=== PATIENT | female | born 1995 | race Two or more races ===

== ENCOUNTER 2017-06-09 11:46 | Emergency (ER) | payer SELFPAY ==
[~2017-06-09] VITALS: Ht 160 cm; Wt 70.9 kg
[~2017-06-09 11:46] MED LIST: MYCOL30CR TP; NO HOME MEDS
[2017-06-09 11:54] VITALS: BP 124/83
[2017-06-09] MEDS ORDERED: ibuprofen tablet 400 MG TABLET PO ONE (12:40)
[2017-06-26] MEDS ORDERED: CEPH250T PO (11:14)
== END 2017-06-09 12:53 | disposition left against medical advice (07) ==
LOC: ER 11:47
DX: M54.89 Other dorsalgia (principal); F32.9 Major depressive disorder, single episode, unspecified; F41.9 Anxiety disorder, unspecified; F20.9 Schizophrenia, unspecified; F12.10 Cannabis abuse, uncomplicated; Z88.6 Allergy status to analgesic agent; Z88.8 Allergy status to other drugs, medicaments and biological substances
CPT/HCPCS: 99282; 99283

== ENCOUNTER 2018-04-27 13:20 | Emergency (ER) | payer MEDICAID, OTHER ==
[~2018-04-27] VITALS: Ht 1604.7 cm; Wt 70.0 kg
[2018-04-27 13:56] LABS: BASOPHILS % (AUTO) 0.4 % (0-1); EOSINOPHILS # (AUTO) 0.1 X10'3 (0-0.9); EOSINOPHILS % (AUTO) 1.7 % (0-6); HEMATOCRIT 37.4 % (35.0-45.0); HEMOGLOBIN 12.9 g/dl (12.0-16.0); LYMPHOCYTES # (AUTO) 1.5 X10'3 (1.1-4.8); LYMPHOCYTES % (AUTO) 21.3 % (21-51); MEAN CORPUSCULAR HEMOGLOBIN 32.1 PG (27.0-31.0); MEAN CORPUSCULAR HGB CONC 34.6 % (33.0-36.5); MEAN CORPUSCULAR VOLUME 92.8 FL (78-98); MEAN PLATELET VOLUME 8.1 FL (7.4-10.4); MONOCYTES # (AUTO) 0.6 X10'3 (0-0.9); MONOCYTES % (AUTO) 8.8 % (2-12); NEUTROPHILS # (AUTO) 4.7 X10'3 (1.8-7.7); NEUTROPHILS % (AUTO) 67.8 % (42-75); PLATELET COUNT 281 X10'3 (140-440); RED BLOOD COUNT 4.04 X10'6 (4.20-5.60); RED CELL DISTRIBUTION WIDTH 12.7 % (11.5-14.5); WHITE BLOOD COUNT 6.9 X10'3 (4.5-11.0)
[2018-04-27 14:00] LABS: CLARITY,URINE SLIGHTLY CLOUDY (Clear); GLUCOSE, URINE NEGATIVE (Neg); KETONES,URINE TRACE mg/dl (Neg); LEUKOCYTE ESTERASE ,URINE TRACE (Neg); NITRITES, URINE NEGATIVE (Neg); OCCULT BLOOD,URINE NEGATIVE (Neg); PH,URINE 6.5 (4.8-8.0); PROTEIN,URINE TRACE mg/dl (Neg)
[2018-04-27 14:01] LABS: COLOR,URINE DARK YELLOW (Yellow); UA COLLECTION TYPE CLN CATCH MIDSTREAM; URINE HCG NEGATIVE (NEG)
[2018-04-27 14:07] LABS: MUCUS STRANDS MANY /LPF (Neg); RBC,URINE NONE SEEN /HPF (0-2); SQUAMOUS EPITHELIAL CELL,UR FEW /LPF (FEW)
[2018-04-27 14:08] LABS: BACTERIA,URINE 1+ /HPF (Neg)
[2018-04-27 14:10] LABS: ALANINE AMINOTRANSFERASE 37 U/L (12-78); ALBUMIN 3.9 G/DL (3.4-5.0); ALBUMIN/GLOBULIN RATIO 1.2 (1.1-1.5); ALKALINE PHOSPHATASE 77 IU/L (46-116); ANION GAP 11 (8-16); ASPARTATE AMINO TRANSFERASE 29 U/L (10-37); BILIRUBIN,TOTAL 0.6 MG/DL (0.1-1.0); BLOOD UREA NITROGEN 9 MG/DL (7-18); BUN/CREATININE RATIO 9.5 (6.6-38.0); CHLORIDE 104 MMOL/L (99-107); CREATININE 0.95 MG/DL (0.40-0.90); GLUCOSE 80 MG/DL (70-104); POTASSIUM 3.5 MMOL/L (3.5-5.1); SODIUM 138 MMOL/L (135-145); TOTAL CARBON DIOXIDE 23.3 MMOL/L (24-32); TOTAL PROTEIN 7.2 G/DL (6.4-8.2); eGFR 74 ML/MIN
[2018-04-27 14:19] LABS: ETHANOL < 0.010 GM/DL (0.0-0.010)
[2018-04-27 14:28] LABS: URINE AMPHETAMINE SCREEN NEGATIVE (Neg); URINE BARBITUATE SCREEN NEGATIVE (Neg); URINE BENZODIAZEPINES SCREEN NEGATIVE (Neg); URINE CANNABINOID SCREEN POSITIVE (Neg); URINE COCAINE SCREEN NEGATIVE (Neg); URINE METHADONE SCREEN NEGATIVE (Neg); URINE OPIATE SCREEN NEGATIVE (Neg); URINE PHENCYCLIDINE SCREEN NEGATIVE (Neg)
[2018-04-27 16:00] VITALS: BP 135/75
[2018-04-27] MEDS: sulfamethoxazole/trimethoprim DS (800/160mg) tablet PO SCH ×2 (17:00→20:49)
[2018-04-27] MEDS ORDERED: haloperidol lactate 5mg/ml inj IM ONE (17:40)
== END 2018-04-27 23:06 ==
LOC: ER 13:20
DX: F20.9 Schizophrenia, unspecified (principal); F19.10 Other psychoactive substance abuse, uncomplicated; N39.0 Urinary tract infection, site not specified; R45.1 Restlessness and agitation; F31.9 Bipolar disorder, unspecified; F12.90 Cannabis use, unspecified, uncomplicated; F15.90 Other stimulant use, unspecified, uncomplicated; F11.90 Opioid use, unspecified, uncomplicated; Z59.0 Homelessness; Z56.0 Unemployment, unspecified; Z98.890 Other specified postprocedural states; Z88.6 Allergy status to analgesic agent; Z88.5 Allergy status to narcotic agent
CPT/HCPCS: 36415; 80053; 80305; 80320; 81001; 81025; 84443; 85025; 96372; 99285; J1630

== ENCOUNTER 2020-02-07 04:55 | Emergency (ER) | payer MEDICAID ==
[~2020-02-07] VITALS: Ht 160 cm; Wt 79.0 kg
--- NOTE | 2020-02-07 05:09 | NUR ---
Pt. changing complaints at triage, stating that her pain started upon waking up this morning and then changing it to being a constant issue. She reports taking meth this morning also.
[2020-02-07] MEDS ORDERED: ondansetron 4mg rapidly disintigrating tab PO ONE (05:30)
[2020-02-07] MEDS ORDERED: amoxicillin 250mg capsule PO ONE (05:30)
[2020-02-07] MEDS ORDERED: acetaminophen 325mg tablet PO ONE (05:30)
[2020-02-07] MEDS ORDERED: AMOX500C2 PO (05:31)
[2020-02-07 06:14] LABS: URINE HCG NEGATIVE (NEG)
[2020-02-07 06:21] LABS: COLOR,URINE YELLOW (Yellow); GLUCOSE, URINE NEGATIVE (Neg); KETONES,URINE NEGATIVE (Neg); LEUKOCYTE ESTERASE ,URINE NEGATIVE (Neg); NITRITES, URINE NEGATIVE (Neg); OCCULT BLOOD,URINE LARGE (Neg); PROTEIN,URINE TRACE mg/dl (Neg)
--- NOTE | 2020-02-07 06:21 | NUR ---
Assumed care of pt from ULISES Marrero. Pt appears to be resting on [facility], in no apparent distress.
[2020-02-07 06:31] LABS: CLARITY,URINE SLIGHTLY CLOUDY (Clear); UA COLLECTION TYPE CLN CATCH MIDSTREAM
[2020-02-07 06:33] LABS: BACTERIA,URINE 1+ /HPF (Neg); MUCUS STRANDS FEW /LPF (Neg); SQUAMOUS EPITHELIAL CELL,UR MANY /LPF (FEW); WBC,URINE 0-4 /HPF (0-4)
[2020-02-07 07:02] VITALS: BP 119/70
== END 2020-02-07 07:30 | disposition home or self-care (01) ==
LOC: ER 04:56
DX: R10.9 Unspecified abdominal pain (principal); H92.01 Otalgia, right ear; F31.9 Bipolar disorder, unspecified; F20.9 Schizophrenia, unspecified; F12.90 Cannabis use, unspecified, uncomplicated; F15.90 Other stimulant use, unspecified, uncomplicated; F11.90 Opioid use, unspecified, uncomplicated; Z56.0 Unemployment, unspecified; Z98.890 Other specified postprocedural states; Z59.0 Homelessness; Z88.6 Allergy status to analgesic agent; Z88.8 Allergy status to other drugs, medicaments and biological substances; Z79.899 Other long term (current) drug therapy
CPT/HCPCS: 81001; 81025; 99284

== ENCOUNTER 2020-02-21 11:48 | Emergency (ER) | payer MEDICAID ==
[~2020-02-21] VITALS: Ht 170.2 cm; Wt 50.0 kg
[~2020-02-21 11:48] MED LIST changes: +AMOX500C2 PO
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
[2020-02-21] MEDS ORDERED: diphenhydrAMINE 25mg capsule PO ONE (13:05)
[2020-02-21 13:28] LABS: URINE HCG NEGATIVE (NEG)
--- NOTE | 2020-02-21 13:30 | NUR ---
Upon assessment pt. presents as disheveled, with dirt on her hands and face. Pt. is restless, laying down, and then standing up after a few minutes and repeating this. Pt. is paranoid refusing lab draw at first, stating, "I can't give you my blood, I don't know what you are going to do with my blood." Pt. eventually agreedto blood draw. Pt. denies SI/HI, A/V hallucinations. However. Pt. reports seeing spiders in her as well as people coming out of the wall. Pt. reports that she smoked meth this AM. UDS came back + for meth. Pt. reports she takes no medications.
[2020-02-21 13:41] LABS: URINE AMPHETAMINE SCREEN POSITIVE (Neg); URINE BARBITUATE SCREEN NEGATIVE (Neg); URINE BENZODIAZEPINES SCREEN NEGATIVE (Neg); URINE CANNABINOID SCREEN NEGATIVE (Neg); URINE COCAINE SCREEN NEGATIVE (Neg); URINE METHADONE SCREEN NEGATIVE (Neg); URINE OPIATE SCREEN NEGATIVE (Neg); URINE PHENCYCLIDINE SCREEN NEGATIVE (Neg)
[2020-02-21 13:55] LABS: BASOPHILS % (AUTO) 0.5 % (0-1); EOSINOPHILS # (AUTO) 0.1 X10'3 (0-0.9); EOSINOPHILS % (AUTO) 0.9 % (0-6); HEMOGLOBIN 13.3 g/dl (12.0-16.0); LYMPHOCYTES % (AUTO) 24.5 % (21-51); MEAN CORPUSCULAR HEMOGLOBIN 30.2 PG (27.0-31.0); MEAN CORPUSCULAR HGB CONC 33.2 g/dL (33.0-36.5); MEAN CORPUSCULAR VOLUME 90.9 FL (78-98); MEAN PLATELET VOLUME 8.4 FL (7.4-10.4); MONOCYTES # (AUTO) 0.6 X10'3 (0-0.9); MONOCYTES % (AUTO) 7.3 % (2-12); NEUTROPHILS # (AUTO) 5.3 X10'3 (1.8-7.7); NEUTROPHILS % (AUTO) 66.8 % (42-75); PLATELET COUNT 294 X10'3 (140-440); RED CELL DISTRIBUTION WIDTH 13.1 % (11.5-14.5)
[2020-02-21 13:56] LABS: CLARITY,URINE SLIGHTLY CLOUDY (Clear); COLOR,URINE STRAW (Yellow); GLUCOSE, URINE NEGATIVE (Neg); KETONES,URINE NEGATIVE (Neg); LEUKOCYTE ESTERASE ,URINE TRACE (Neg); NITRITES, URINE POSITIVE (Neg); OCCULT BLOOD,URINE MODERATE (Neg); PH,URINE 6.5 (4.8-8.0); PROTEIN,URINE NEGATIVE (Neg); UROBILINOGEN,URINE 0.2 E.U/dL (0.2-1.0)
[2020-02-21 13:58] LABS: UA COLLECTION TYPE NON-SPECIFIED
[2020-02-21 14:04] LABS: SQUAMOUS EPITHELIAL CELL,UR MODERATE /LPF (FEW)
[2020-02-21 14:05] LABS: BACTERIA,URINE 4+ /HPF (Neg); RBC,URINE NONE SEEN /HPF (0-2); WBC,URINE 0-4 /HPF (0-4)
[2020-02-21 14:06] LABS: WBC CLUMPS,URINE FEW /HPF (NEGATIVE)
[2020-02-21 14:09] LABS: ALANINE AMINOTRANSFERASE 29 U/L (12-78); ALBUMIN 4.1 G/DL (3.4-5.0); ALBUMIN/GLOBULIN RATIO 1.3 (1.1-1.5); ALKALINE PHOSPHATASE 95 IU/L (46-116); ANION GAP 12 (8-16); ASPARTATE AMINO TRANSFERASE 27 U/L (10-37); BILIRUBIN,TOTAL 0.9 MG/DL (0.1-1.0); BLOOD UREA NITROGEN 12 MG/DL (7-18); BUN/CREATININE RATIO 15.6 (6.6-38.0); CHLORIDE 104 MMOL/L (99-107); CREATININE 0.77 MG/DL (0.40-0.90); ETHANOL < 0.010 GM/DL (0.0-0.010); GLUCOSE 74 MG/DL (70-104); POTASSIUM 3.8 MMOL/L (3.5-5.1); SODIUM 140 MMOL/L (135-145); TOTAL CARBON DIOXIDE 24.2 MMOL/L (24-32); TOTAL PROTEIN 7.3 G/DL (6.4-8.2); eGFR > 90 ML/MIN
[2020-02-21] MEDS ORDERED: nitrofuran/nitrofuran macrocrysal 100 MG capsule PO ONE (14:10)
[2020-02-21] MEDS ORDERED: LORazepam 1 MG tablet PO ONE (14:35)
--- NOTE | 2020-02-21 14:45 | NUR ---
Pt. is + for UTI. Pt. refused macrobid but took Ativan.
--- NOTE | 2020-02-21 15:30 | NUR ---
Pt. up to bathrooma and reported a moderate amount of normal, formed, brown stool.
--- NOTE | 2020-02-21 17:30 | NUR ---
Pt. asleep, laying on right side. normal R&R of respirations. Pt. in no apparent distress.
--- NOTE | 2020-02-21 17:54 | NUR ---
Pt. awoken for vitals and became agitated, tear off blood pressure cuff. RN able to calm pt. down however, pt. would not sit still while getting vital signs. Pt. up to toilet to void and then went back to sleep.
--- NOTE | 2020-02-21 18:30 | NUR ---
Patient is awake in the main ER. Speech is tangential at times. Patient exhibits anxiety and rapid speech. She is cooperative with staff. Patient realizes she is in the hospital. This web content writer will speak with the provider about an Rx for Zyprexa for patients anxiety/agitation, and lack of sleep.
[2020-02-21] MEDS ORDERED: OLANZapine **IM** 10 mg inj. IM ONE (18:55)
[2020-02-21] MEDS ORDERED: LORazepam 2 mg/ml vial IM PRN (19:25)
--- NOTE | 2020-02-21 19:33 | NUR ---
The patient ate her dinner rapidly. Patient then agreed to and was given Zyprexa 5mg IM. The patient is now sleeping on her right side. Two rails up, the bed is locked. Patient is in direct view from the nursing station.
--- NOTE | 2020-02-21 19:50 | NUR ---
Unable to complete [place] Suicide Severity Score. Patients thoughts are disorganized.
--- NOTE | 2020-02-21 21:03 | NUR ---
Patient awoke, she is delusional, pagient accidently pulled curtain down. Patient assisted back to bed. Ativan 1mg given IM. Patient cooperative with medication administration.
--- NOTE | 2020-02-22 00:16 | NUR ---
Patient is sleeping, low fowlers in bed.
--- NOTE | 2020-02-22 01:10 | NUR ---
Breaking primary RN, pt. resting quietly, no signs of distress, respirations WNL
--- NOTE | 2020-02-22 01:44 | NUR ---
Report given on this patient to Nurse Oates at [facility]. They are considering accepting this patient. No acceptance at this time.
--- NOTE | 2020-02-22 03:36 | NUR ---
Patient sat up and ate more food. She then returned to sleep.
--- NOTE | 2020-02-22 04:05 | NUR ---
Patient will be accepted to [facility]. He will be accepted to the care of Dr. Michelle.
--- NOTE | 2020-02-22 07:16 | NUR ---
Patient sleeping supine in bed. Respirations are even and unlabored.
--- NOTE | 2020-02-22 08:10 | NUR ---
Patient sitting up in bed eating breakfast. No s/s of distress noted.
[2020-02-22 09:59] VITALS: BP 119/57
== END 2020-02-22 10:21 ==
LOC: ER 11:48
DX: F31.9 Bipolar disorder, unspecified (principal); F20.9 Schizophrenia, unspecified; F17.200 Nicotine dependence, unspecified, uncomplicated; F12.90 Cannabis use, unspecified, uncomplicated; F15.90 Other stimulant use, unspecified, uncomplicated; F11.90 Opioid use, unspecified, uncomplicated; Z56.0 Unemployment, unspecified; Z98.890 Other specified postprocedural states; Z59.0 Homelessness; Z60.2 Problems related to living alone; Z88.6 Allergy status to analgesic agent; Z88.8 Allergy status to other drugs, medicaments and biological substances; Z79.899 Other long term (current) drug therapy
CPT/HCPCS: 36415; 80053; 80305; 80320; 81001; 81025; 85025; 87077; 87088; 87186; 96372; 99285; J2060; J3490; 99284

== ENCOUNTER 2020-08-23 00:26 | Inpatient (IN) | payer MEDICAID ==
[~2020-08-23] VITALS: Ht 160 cm; Wt 67.8 kg
[~2020-08-23 00:26] MED LIST changes: -AMOX500C2 PO
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
[2020-08-24 12:00] VITALS: BP 132/73
--- NOTE | 2020-08-24 12:00 | NUR ---
Pt. is A&O to person and place, but not to situation and time. When asked why she is here, pt. states, "My sister left me in [place]... But I didn't do anything wrong".
[2020-08-24] MEDS ORDERED: mag hydrox/Alum hydrox/simeth 30ml oral suspension PO PRN (12:15)
[2020-08-24] MEDS ORDERED: magnesium hydroxide 30ml (MOM) UD suspension PO PRN (12:15)
[2020-08-24] MEDS ORDERED: loperamide 2mg capsule PO PRN (12:15)
[2020-08-24] MEDS ORDERED: traZODone 50mg tablet PO PRN (12:15)
[2020-08-24] MEDS ORDERED: acetaminophen 325mg tablet PO PRN ×2 (12:15)
[2020-08-24] MEDS ORDERED: Permethrin 1% 59ml topical rinse TP ONE (12:25)
--- NOTE | 2020-08-24 12:40 | NUR ---
Paged Infection Control re pt's head lice that was found upon skin check at admit. Pt is being treated with Permethrin topical rinse and is placed in isolation. Addendum: 08/24/20 at 1537 by Melissa Marie RN Spoke with [address], Infection Control. Pt needs to remain in isolation and can be retreated in one week as needed.
[2020-08-24] MEDS ORDERED: Ivermectin 3mg tablet PO SCH (16:20)
[2020-08-24] MEDS ORDERED: OLAN5TAB3 PO (16:50)
[2020-08-24] MEDS: OLANZapine 2.5MG tablet PO SCH (21:02)
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
[2020-08-25 07:54] VITALS: BP 118/67
[2020-08-25] MEDS: OLANZapine 2.5MG tablet PO SCH ×2 (08:38→20:35)
[2020-08-25] MEDS: LORazepam 1 MG tablet PO PRN (09:42)
[2020-08-25 10:06] LABS: CHOL/HDL RATIO 3.2 (0.00-4.99); CHOLESTEROL 151 MG/DL (0-200); HDL CHOLESTEROL 47 MG/DL (35-60); LDL CHOLESTEROL 81 MG/DL (50-100); TRIGLYCERIDES 119 MG/DL (20-135)
[2020-08-25] MEDS ORDERED: LORazepam 1 MG tablet PO ONE (15:10)
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
[2020-08-26 07:53] VITALS: BP 117/78
[2020-08-26] MEDS: OLANZapine 2.5MG tablet PO SCH ×2 (08:08→20:34)
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
[2020-08-26] MEDS: Permethrin 1% 59ml topical rinse TP ONE ×2 (16:01→16:10)
[2020-08-26 19:00] VITALS: BP 116/80
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
[2020-08-27 07:40] VITALS: BP 108/57
[2020-08-27] MEDS: OLANZapine 2.5MG tablet PO SCH ×2 (07:59→20:32)
--- NOTE | 2020-08-27 10:18 | NUR ---
Initial: Pt admit DX bipolar 1 disorder and polysubstance abuse per EMR. PO 90-100% avg regular diet meeting needs. LBM 08/25. No nutrition concerns at this time. Will continue to monitor. Rec: 1. continue regular diet 2. routine bowel care 3. wt per rx Addendum: 08/27/20 at [address] Amended: Links added.
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
[2020-08-27 19:31] VITALS: BP 126/64
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
[2020-08-28 07:46] VITALS: BP 108/64
[2020-08-28] MEDS: OLANZapine 2.5MG tablet PO SCH ×2 (08:28→20:37)
[2020-08-28] MEDS: LORazepam 1 MG tablet PO PRN (11:34)
--- NOTE | 2020-08-28 13:05 | NUR ---
DCP Presenting Issues: Pt's made progress and is stable for d/c to f/u with [facility] for outpatient care. Attending PA requesting SS support w/dcp activities. Interventions: SS met w/pt @ bedside & engaged her in dcp activities. Pt is a poor historian, unable to provide full address for her home in [place], nor was she able to provide contact info for her mother. SS was able to find a contact number for pt and provided support for pt to contact her mother, pt was able to talk to her brother who told her to go to a family friend's home to meet her mother. Pt's brother was not able to provide specific details re family friend's contact & address he will call SS after he speaks with his mother. SS had t/c with pt's mother who provided home address & contact info. SS had t/c with [facility] and coordinated transportation and f/u appointment for pt. Plan: Pt to d/c tomorrow morning. Marii Hermosillo LCSW Addendum: 08/28/20 at 1435 by Marii CARREON Amended: Links added.
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
[2020-08-28] MEDS ORDERED: olanzapine 10mg tablet PO ONE (16:15)
[2020-08-28 19:53] VITALS: BP 125/51
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
[2020-08-29] MEDS: LORazepam 1 MG tablet PO PRN (06:19)
[2020-08-29 07:53] VITALS: BP 115/73
[2020-08-29] MEDS ORDERED: OLANZapine 2.5MG tablet PO SCH (08:00)
[2020-08-29] MEDS ORDERED: OLAN7.5T9 PO (09:37)
--- NOTE | 2020-08-29 11:00 | NUR ---
Nursing Discharge Note: Patient denies suicidal/homicidal ideation. Patient denies audio/visual hallucinations. RN gave patient d/c instructions and advised patient where her medication was called into in [facility]. The information is also in the paperwork RN gave patient. Patient verbalized understanding. All questions were answered. Patient awaiting ride for [employer] as she was supposed to be picked up at 10 and it was closed to 11 when the [employer] arrived. Patient was happy and talkative this morning. At snack time patient didn't get what she wanted and she started crying like a baby. Loud and walking up and down the halls. Patient was so loud that she was unable to hear the RN telling her to calm down. Lasted a few minutes until patient was told her ride was here to take her home. Patient immediately stopped crying. Said "I'm fine." Patient walked down to [facility] with all her belongings. RN gave patient a sack lunch patient did not need an additional MRSA swab but RN did take pictures of her dry feet.
--- NOTE | 2020-08-29 12:21 | NUR ---
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 SS referral's closed. Marii Hermosillo ATM SERVICER Addendum: 08/29/20 at 1227 by Marii Hermosillo Amended: Links added.
== END 2020-08-29 11:00 | disposition home or self-care (01) | DRG 753 ==
LOC: ADULT MH 23:10
PROVIDERS: ADMIT Psychiatry & Neurology Psychiatry; ATTEND Psychiatry & Neurology Psychiatry
DX: F31.9 Bipolar disorder, unspecified (principal); F15.10 Other stimulant abuse, uncomplicated; E11.9 Type 2 diabetes mellitus without complications; J45.909 Unspecified asthma, uncomplicated; R45.86 Emotional lability; Z87.891 Personal history of nicotine dependence; Z88.6 Allergy status to analgesic agent; Z93.3 Colostomy status; Z90.49 Acquired absence of other specified parts of digestive tract; Z79.899 Other long term (current) drug therapy
CPT/HCPCS: 36415; 80061; 83036; 87081

== ENCOUNTER 2022-10-03 14:50 | Emergency (ER) | payer MEDICAID ==
[~2022-10-03] VITALS: Ht 160 cm; Wt 93.0 kg
[~2022-10-03 14:50] MED LIST changes: +HALO5TAB PO; -MYCOL30CR TP; -NO HOME MEDS; +NYSPWD TP; +PROP10TA10 PO; +RISP1TAB13 PO
[2022-10-03 15:06] VITALS: BP 128/52
== END 2022-10-03 16:27 | disposition home or self-care (01) ==
LOC: ER 14:50
DX: T19.2XXA Foreign body in vulva and vagina, initial encounter (principal); X58.XXXA Exposure to other specified factors, initial encounter; Y93.89 Activity, other specified; Y92.89 Other specified places as the place of occurrence of the external cause; Y99.8 Other external cause status
CPT/HCPCS: 74018; 99283

== ENCOUNTER 2023-02-14 11:01 | Emergency (ER) | payer MEDICAID ==
[~2023-02-14 11:01] MED LIST changes: -RISP1TAB13 PO
--- NOTE | 2023-02-14 12:46 | NUR ---
NOT IN LOBBY.
== END 2023-02-14 13:19 | disposition left against medical advice (07) ==
LOC: ER 11:02
DX: Z04.6 Encounter for general psychiatric examination, requested by authority (principal); Z53.21 Procedure and treatment not carried out due to patient leaving prior to being seen by health care provider

== ENCOUNTER 2023-03-01 11:45 | Emergency (ER) | payer MEDICAID ==
[~2023-03-01] VITALS: Ht 162.6 cm; Wt 61.0 kg
[2023-03-01 12:13] VITALS: BP 103/43
--- NOTE | 2023-03-01 14:08 | NUR ---
at bedside for vaginal exam with lou title i director.
== END 2023-03-01 14:46 | disposition home or self-care (01) ==
LOC: ER 11:46
DX: T19.2XXA Foreign body in vulva and vagina, initial encounter (principal); F31.9 Bipolar disorder, unspecified; F20.9 Schizophrenia, unspecified; F12.10 Cannabis abuse, uncomplicated; F15.10 Other stimulant abuse, uncomplicated; F17.200 Nicotine dependence, unspecified, uncomplicated; F11.10 Opioid abuse, uncomplicated; Z88.6 Allergy status to analgesic agent; Z88.8 Allergy status to other drugs, medicaments and biological substances; Z56.0 Unemployment, unspecified; Z59.00 Homelessness unspecified
CPT/HCPCS: 99284

== ENCOUNTER 2023-03-05 18:38 | Emergency (ER) | payer MEDICAID ==
[~2023-03-05] VITALS: Ht 154.9 cm; Wt 83.6 kg
[2023-03-05 19:03] VITALS: BP 120/64
== END 2023-03-05 21:30 | disposition home or self-care (01) ==
LOC: ER 18:39
DX: L90.5 Scar conditions and fibrosis of skin (principal); F20.9 Schizophrenia, unspecified; F31.9 Bipolar disorder, unspecified; F12.10 Cannabis abuse, uncomplicated; F15.10 Other stimulant abuse, uncomplicated; F11.10 Opioid abuse, uncomplicated; Z59.00 Homelessness unspecified; Z56.0 Unemployment, unspecified; Z88.6 Allergy status to analgesic agent; Z88.8 Allergy status to other drugs, medicaments and biological substances; Z79.899 Other long term (current) drug therapy
CPT/HCPCS: 99281

== ENCOUNTER 2023-03-06 05:17 | Emergency (ER) | payer MEDICAID ==
--- NOTE | 2023-03-06 06:17 | NUR ---
not in lobby.
== END 2023-03-06 06:58 | disposition left against medical advice (07) ==
LOC: ER 05:17
DX: Z00.8 Encounter for other general examination (principal); Z53.21 Procedure and treatment not carried out due to patient leaving prior to being seen by health care provider

== ENCOUNTER 2023-04-05 15:25 | Emergency (ER) | payer MEDICAID ==
[~2023-04-05] VITALS: Ht 157.5 cm; Wt 82.8 kg
[2023-04-05 16:57] VITALS: BP 127/78; PULSE 89; RESP 17; TEMP 97.8; O2SAT 98
--- NOTE | 2023-04-05 17:28 | NUR ---
OCCURENCE REPORT #[id number]
== END 2023-04-05 19:36 | disposition left against medical advice (07) ==
LOC: ER 15:26
DX: Z04.6 Encounter for general psychiatric examination, requested by authority (principal); R44.0 Auditory hallucinations; R19.7 Diarrhea, unspecified; Z53.21 Procedure and treatment not carried out due to patient leaving prior to being seen by health care provider
CPT/HCPCS: 99281

== ENCOUNTER 2023-04-24 12:37 | Emergency (ER) | payer MEDICAID ==
[~2023-04-24] VITALS: Ht 162.6 cm; Wt 83.6 kg
[2023-04-24 12:54] VITALS: BP 133/71; PULSE 95; O2SAT 97
[2023-04-24 13:11] VITALS: RESP 16
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
[2023-04-24 14:06] VITALS: TEMP 99.6
[2023-04-29] MEDS ORDERED: HALO5TAB PO (22:13)
[2023-04-29] MEDS ORDERED: HALO10TA13 PO (22:13)
[2023-04-29] MEDS ORDERED: DIPH-423 PO (22:14)
== END 2023-04-24 14:12 | disposition home or self-care (01) ==
LOC: ER 12:38
DX: R10.30 Lower abdominal pain, unspecified (principal); F31.9 Bipolar disorder, unspecified; F20.9 Schizophrenia, unspecified; F12.10 Cannabis abuse, uncomplicated; F15.10 Other stimulant abuse, uncomplicated; Z88.6 Allergy status to analgesic agent; Z88.8 Allergy status to other drugs, medicaments and biological substances
CPT/HCPCS: 74018; 99283

== ENCOUNTER 2023-06-11 10:57 | Emergency (ER) | payer MEDICAID ==
[~2023-06-11] VITALS: Ht 160 cm; Wt 75.0 kg
[~2023-06-11 10:57] MED LIST changes: +DIPH-423 PO; +HYDR-3686 PO; +NICO-907 BC; -NYSPWD TP; -PROP10TA10 PO; +VALP250C44 PO
--- NOTE | 2023-06-11 12:06 | NUR ---
ATTEMPT HOURLY VITALS, PT NOT IN LOBBY AT THIS TIME. PER SECURITY, "SHES A THE BUS STOP SHE'LL BE BACK"
[2023-06-11 14:28] LABS: BASOPHILS % (AUTO) 0.3 % (0-1); EOSINOPHILS # (AUTO) 0.1 X10'3 (0-0.9); EOSINOPHILS % (AUTO) 1.2 % (0-6); HEMATOCRIT 44.2 % (35.0-45.0); HEMOGLOBIN 14.6 g/dl (12.0-16.0); LYMPHOCYTES # (AUTO) 1.7 X10'3 (1.1-4.8); LYMPHOCYTES % (AUTO) 17.4 % (21-51); MEAN CORPUSCULAR HEMOGLOBIN 29.4 PG (27.0-31.0); MEAN CORPUSCULAR VOLUME 88.9 FL (78-98); MEAN PLATELET VOLUME 8.1 FL (7.4-10.4); MONOCYTES # (AUTO) 0.7 X10'3 (0-0.9); MONOCYTES % (AUTO) 7.3 % (2-12); NEUTROPHILS # (AUTO) 7.1 X10'3 (1.8-7.7); NEUTROPHILS % (AUTO) 73.8 % (42-75); PLATELET COUNT 314 X10'3 (140-440); RED BLOOD COUNT 4.97 X10'6 (4.20-5.60); WHITE BLOOD COUNT 9.6 X10'3 (4.5-11.0)
[2023-06-11 14:51] LABS: URINE HCG NEGATIVE (NEG)
[2023-06-11] MEDS ORDERED: DIPH-423 PO (15:04)
[2023-06-11] MEDS ORDERED: HYDR-3686 PO (15:04)
[2023-06-11] MEDS ORDERED: VALP250C3 PO (15:04)
[2023-06-11] MEDS ORDERED: HALO5TAB PO ×2 (15:04)
[2023-06-11 15:06] LABS: ALANINE AMINOTRANSFERASE 28 U/L (12-78); ALBUMIN 4.1 G/DL (3.4-5.0); ALBUMIN/GLOBULIN RATIO 1.1 (1.1-1.5); ALKALINE PHOSPHATASE 121 IU/L (46-116); ANION GAP 7 (8-16); ASPARTATE AMINO TRANSFERASE 12 U/L (10-37); BILIRUBIN,TOTAL 0.3 MG/DL (0.1-1.0); BLOOD UREA NITROGEN 11 MG/DL (7-18); BUN/CREATININE RATIO 14.5 (10.0-20.0); CALCIUM 9.4 MG/DL (8.5-10.1); CHLORIDE 102 MMOL/L (99-107); CREATININE 0.76 MG/DL (0.40-0.90); GLUCOSE 87 MG/DL (70-104); POTASSIUM 3.5 MMOL/L (3.5-5.1); SODIUM 135 MMOL/L (135-145); TOTAL CARBON DIOXIDE 26.5 MMOL/L (24-32); eCRCL 93 ML/MIN; eGFR > 90 ML/MIN
[2023-06-11 15:07] LABS: URINE AMPHETAMINE SCREEN POSITIVE (Neg); URINE BARBITUATE SCREEN NEGATIVE (Neg); URINE BENZODIAZEPINES SCREEN NEGATIVE (Neg); URINE CANNABINOID SCREEN POSITIVE (Neg); URINE COCAINE SCREEN NEGATIVE (Neg); URINE OPIATE SCREEN NEGATIVE (Neg); URINE PHENCYCLIDINE SCREEN NEGATIVE (Neg)
[2023-06-11 15:23] LABS: ETHANOL < 10 MG/DL (<10); VALPROATE < 3.0 UG/ML (50-100)
[2023-06-11 15:38] LABS: BILIRUBIN,URINE NEGATIVE (Neg); CLARITY,URINE SLIGHTLY CLOUDY (Clear); COLOR,URINE YELLOW (Yellow); GLUCOSE, URINE NEGATIVE (Neg); KETONES,URINE NEGATIVE (Neg); LEUKOCYTE ESTERASE ,URINE TRACE (Neg); NITRITES, URINE NEGATIVE (Neg); OCCULT BLOOD,URINE NEGATIVE (Neg); PROTEIN,URINE NEGATIVE (Neg); UROBILINOGEN,URINE 0.2 E.U/dL (0.2-1.0)
[2023-06-11 15:44] LABS: UA COLLECTION TYPE CLN CATCH MIDSTREAM
[2023-06-11 15:45] LABS: BACTERIA,URINE 2+ /HPF (Neg); MUCUS STRANDS MANY /LPF (Neg); SQUAMOUS EPITHELIAL CELL,UR MANY /LPF (FEW)
--- NOTE | 2023-06-11 15:48 | NUR ---
Patient denies suicidal ideation at this time. Patient has had diarrhea x 2 in her pants. Patient able to clean herself up. RN asked patient to please attempt to go to the BR when she feels the need. patient verbalized understanding.
[2023-06-11] MEDS ORDERED: hydrOXYzine 25 MG tablet PO SCH (16:05)
[2023-06-11 16:19] LABS: LIPASE 20 U/L (16-77)
[2023-06-11] MEDS ORDERED: hydrOXYzine 25 MG tablet PO PRN ×2 (16:20→17:20)
[2023-06-11] MEDS ORDERED: HYDR50TA65 PO (16:58)
[2023-06-11] MEDS ORDERED: HALO100A2 IM (17:01)
[2023-06-11] MEDS ORDERED: LOPE2CAP PO (17:01)
--- NOTE | 2023-06-11 17:50 | NUR ---
Patient with diarrhea. Patient to the BR to clean herself and RN gave patient wipes and a pullup. Patient able to clean herself. Continue to monitor.
[2023-06-11] MEDS: loperamide 2mg capsule PO PRN (18:14)
--- NOTE | 2023-06-11 18:48 | NUR ---
One to one with the patient who has been cooperative. She did approach the nursing station and stated she felt scared and that she was seening "Braden Schneider" coming from different directions and that she felt frightened. She was reassured of her safety and that she can be safe here. She denies that she feels suicidal. She was asked about the positive amphetamine tox screen and she stated that her family smokes it in the car and that is how she came up positive. She is resting on her bed. She has hyperactive bowel sounds.
--- NOTE | 2023-06-11 18:48 | NUR ---
PACKET FAXED TO [facility]
[2023-06-11] MEDS ORDERED: valproic acid 250mg capsule PO SCH (20:00)
[2023-06-11] MEDS: divalproex sod 250mg ER (24-hour) tablet PO SCH (20:34)
--- NOTE | 2023-06-11 20:40 | NUR ---
HS medications and snack given. Patient pleasant and cooperative.
[2023-06-11] MEDS ORDERED: diphenhydrAMINE 25mg capsule PO SCH (21:00)
[2023-06-11] MEDS ORDERED: haloperidol 5mg tablet PO SCH (21:00)
--- NOTE | 2023-06-11 22:57 | NUR ---
The patient appears to be sleeping
--- NOTE | 2023-06-12 00:51 | NUR ---
The patient appears to be sleeping. Respirations even and unlabored. Continuing plan of care
--- NOTE | 2023-06-12 02:39 | NUR ---
The patient appears to be sleeping. Respirations even and unlabored. Continue plan of care. The patient is in clear view of the nursing station
--- NOTE | 2023-06-12 05:01 | NUR ---
The patient appeared to have slept well during the night
[2023-06-12] MEDS: loperamide 2mg capsule PO PRN ×2 (05:17→16:54)
--- NOTE | 2023-06-12 05:40 | NUR ---
The patient was incontinent of a large amount of liquid stool
--- NOTE | 2023-06-12 06:52 | NUR ---
Pt. sleeping in bed. Breathing even and unlabored. No noted s/sx of distress. Will cont. to monitor.
[2023-06-12] MEDS ORDERED: haloperidol 5mg tablet PO SCH (08:00)
--- NOTE | 2023-06-12 08:10 | NUR ---
Pt. ate few bites of breakfast. Incontinent of stool x2 thus far. Went back to bed. denies SI/HI at this time. no c/o or noted s/sx of distress. Will cont. to monitor.
[2023-06-12] MEDS: divalproex sod 250mg ER (24-hour) tablet PO SCH (08:30)
--- NOTE | 2023-06-12 10:12 | NUR ---
Pt. sleeping on back. Breathing even and unlabored. no noted s/sx of distress. Will cont. to monitor.
--- NOTE | 2023-06-12 10:53 | NUR ---
Patient continues to sleep. No distress observed. Respirations nonlabored. Continue to monitor.
--- NOTE | 2023-06-12 11:34 | NUR ---
Assumed care of patient. pt. is sleeping at this time with HOB elevated. Respirations are even and unlabored.
--- NOTE | 2023-06-12 12:35 | NUR ---
[facility] is at bedside evaluating pt. at this time.
--- NOTE | 2023-06-12 13:16 | NUR ---
Pt. refused lunch and continues to sleep at this time, no s/s of distress or discomfort noted.
[2023-06-12 14:39] LABS: C DIFF ANTIGEN NEGATIVE (NEGATIVE); C DIFF SPECIMEN=DIARRHEA? ACCEPTABLE; C DIFFICILE TOXINS A&B NEGATIVE (Neg)
--- NOTE | 2023-06-12 15:38 | NUR ---
Pt. continues to sleep at this time, rise and fall of chest noted.
[2023-06-12] MEDS ORDERED: CefTRIAXone 1000mg IM Kit (w/lidocaine diluent) IM ONE (16:20)
--- NOTE | 2023-06-12 16:23 | NUR ---
Pt. is complaining of frequency of urination with burning. Her urine WBC are elevated and leukocyte esterase is positive. This was endorsed to Dr. Araujo and received orders for Rocephin 1 gram IM. Addendum: 06/12/23 at 1739 by HEATHER Injection was administered in the left ventrogluteal site and pt. tolerated well.
--- NOTE | 2023-06-12 17:30 | NUR ---
Pt. was discharged off the unit accompanied by staff to [facility] [employer] which will be transporting her to the [facility]. Pt's belongings were inventoried and returned to her. This chief writer reviewed pt's discharge instructions and she reported understanding. Pt. was provided with mental health information and is able to contract for safety.
[2023-06-12 17:40] VITALS: BP 112/74; PULSE 99; RESP 12; TEMP 97.5; O2SAT 97
[2023-06-13] MEDS ORDERED: METR-159 PO (17:19)
[2023-06-13] MEDS ORDERED: AMOX-580 PO (17:19)
== END 2023-06-12 17:44 | disposition home or self-care (01) ==
LOC: ER 11:00
DX: F32.A Depression, unspecified (principal); Z20.822 Contact with and (suspected) exposure to COVID-19; N39.0 Urinary tract infection, site not specified; F15.10 Other stimulant abuse, uncomplicated; F29 Unspecified psychosis not due to a substance or known physiological condition; F12.10 Cannabis abuse, uncomplicated
CPT/HCPCS: 36415; 74176; 80053; 80164; 80305; 80320; 81001; 81025; 83690; 85025; 87324; 87449; 87811; 96372; 99285; J0696; Q0163

== ENCOUNTER 2023-06-13 09:46 | Emergency (ER) | payer MEDICAID ==
[~2023-06-13] VITALS: Ht 167.6 cm; Wt 84.0 kg
[~2023-06-13 09:46] MED LIST changes: +HALO100A2 IM; +HYDR50TA65 PO; +LOPE2CAP PO; -NICO-907 BC; +VALP250C3 PO; -VALP250C44 PO
[2023-06-13 14:21] LABS: URINE HCG NEGATIVE (NEG)
[2023-06-13] MEDS ORDERED: ondansetron 4mg rapidly disintigrating tab PO ONE (14:30)
[2023-06-13 14:42] LABS: BILIRUBIN,URINE NEGATIVE (Neg); CLARITY,URINE CLOUDY (Clear); COLOR,URINE YELLOW (Yellow); GLUCOSE, URINE NEGATIVE (Neg); KETONES,URINE TRACE mg/dl (Neg); LEUKOCYTE ESTERASE ,URINE TRACE (Neg); NITRITES, URINE NEGATIVE (Neg); OCCULT BLOOD,URINE NEGATIVE (Neg); PROTEIN,URINE NEGATIVE (Neg); UROBILINOGEN,URINE 0.2 E.U/dL (0.2-1.0)
[2023-06-13 14:57] LABS: BASOPHILS % (AUTO) 0.2 % (0-1); EOSINOPHILS # (AUTO) 0.1 X10'3 (0-0.9); EOSINOPHILS % (AUTO) 0.9 % (0-6); HEMATOCRIT 43.3 % (35.0-45.0); HEMOGLOBIN 14.6 g/dl (12.0-16.0); LYMPHOCYTES # (AUTO) 0.9 X10'3 (1.1-4.8); LYMPHOCYTES % (AUTO) 11.4 % (21-51); MEAN CORPUSCULAR HEMOGLOBIN 29.9 PG (27.0-31.0); MEAN CORPUSCULAR HGB CONC 33.7 g/dL (33.0-36.5); MEAN CORPUSCULAR VOLUME 88.7 FL (78-98); MEAN PLATELET VOLUME 8.1 FL (7.4-10.4); MONOCYTES # (AUTO) 0.4 X10'3 (0-0.9); MONOCYTES % (AUTO) 5.6 % (2-12); NEUTROPHILS # (AUTO) 6.5 X10'3 (1.8-7.7); NEUTROPHILS % (AUTO) 81.9 % (42-75); PLATELET COUNT 314 X10'3 (140-440); RED BLOOD COUNT 4.88 X10'6 (4.20-5.60); RED CELL DISTRIBUTION WIDTH 13.7 % (11.5-14.5); WHITE BLOOD COUNT 7.9 X10'3 (4.5-11.0)
[2023-06-13 14:58] LABS: UA COLLECTION TYPE CLN CATCH MIDSTREAM
[2023-06-13 14:59] LABS: BACTERIA,URINE 3+ /HPF (Neg); HYALINE CASTS 0-3 /LPF (NEGATIVE); RBC,URINE 0-2 /HPF (0-2); SQUAMOUS EPITHELIAL CELL,UR MANY /LPF (FEW); WBC,URINE 0-4 /HPF (0-4)
[2023-06-13 15:13] LABS: ALANINE AMINOTRANSFERASE 27 U/L (12-78); ALBUMIN 3.9 G/DL (3.4-5.0); ALKALINE PHOSPHATASE 121 IU/L (46-116); ANION GAP 11 (8-16); ASPARTATE AMINO TRANSFERASE 18 U/L (10-37); BILIRUBIN,TOTAL 0.5 MG/DL (0.1-1.0); BLOOD UREA NITROGEN 16 MG/DL (7-18); BUN/CREATININE RATIO 18.2 (10.0-20.0); CALCIUM 8.9 MG/DL (8.5-10.1); CHLORIDE 99 MMOL/L (99-107); CREATININE 0.88 MG/DL (0.40-0.90); GLUCOSE 159 MG/DL (70-104); POTASSIUM 3.5 MMOL/L (3.5-5.1); SODIUM 133 MMOL/L (135-145); TOTAL CARBON DIOXIDE 22.7 MMOL/L (24-32); TOTAL PROTEIN 7.7 G/DL (6.4-8.2); eCRCL 91 ML/MIN; eGFR 78 ML/MIN
--- NOTE | 2023-06-13 15:20 | NUR ---
pt requiring frequent redirection to stay in bed. she is compliant when redirected
[2023-06-13 15:25] LABS: LIPASE 14 U/L (16-77)
[2023-06-13] MEDS ORDERED: iohexol 300mg/ml 100ml inj. ONE (16:10)
[2023-06-13] MEDS ORDERED: metroNIDAZOLE 500mg tablet PO ONE (17:05)
[2023-06-13] MEDS ORDERED: amox tr/potassium clavulanate 875/125mg TAB PO ONE (17:05)
[2023-06-13] MEDS ORDERED: METR-159 PO (17:19)
[2023-06-13] MEDS ORDERED: AMOX-580 PO (17:19)
[2023-06-13 17:33] VITALS: BP 146/83; PULSE 87; RESP 16; TEMP 98.7; O2SAT 97
== END 2023-06-13 17:34 | disposition home or self-care (01) ==
LOC: ER 09:47
DX: K52.9 Noninfective gastroenteritis and colitis, unspecified (principal); F15.10 Other stimulant abuse, uncomplicated; F31.9 Bipolar disorder, unspecified; F12.90 Cannabis use, unspecified, uncomplicated; Z88.6 Allergy status to analgesic agent; Z88.8 Allergy status to other drugs, medicaments and biological substances; Z79.2 Long term (current) use of antibiotics; Z79.899 Other long term (current) drug therapy
CPT/HCPCS: 36415; 74177; 80053; 81001; 81025; 83690; 85025; 99285; J3490; Q9967

== ENCOUNTER 2023-06-16 01:43 | Emergency (ER) | payer MEDICAID ==
[~2023-06-16] VITALS: Ht 160 cm; Wt 51.8 kg
[~2023-06-16 01:43] MED LIST changes: +AMOX-580 PO; +METR-159 PO
[2023-06-16 01:50] VITALS: TEMP 98.3
[2023-06-16] MEDS ORDERED: acetaminophen 325mg tablet PO ONE (01:55)
--- NOTE | 2023-06-16 02:11 | NUR ---
PT JARRELL WATER WITH PO MED WELL, NO N/V NOTED
[2023-06-16 03:17] VITALS: BP 115/80; PULSE 62; RESP 12; O2SAT 98
[2023-06-17] MEDS ORDERED: NO HOME MEDS (20:32)
== END 2023-06-16 03:22 | disposition home or self-care (01) ==
LOC: ER 01:43
DX: M79.605 Pain in left leg (principal); F31.9 Bipolar disorder, unspecified; F12.10 Cannabis abuse, uncomplicated; F15.10 Other stimulant abuse, uncomplicated; Z79.899 Other long term (current) drug therapy
CPT/HCPCS: 99283

== ENCOUNTER 2023-06-17 05:51 | Emergency (ER) | payer MEDICAID ==
[~2023-06-17] VITALS: Ht 157.5 cm; Wt 51.8 kg
--- NOTE | 2023-06-17 07:11 | NUR ---
SI SCREENING COMPLETED. PATIENT LAUGHING RANDOMLY AND STATES DOING METH IS TRYING TO KILL HERSELF. PATIENT'S THOUGHTS JUMBLED AND DOES NOT MAKE SENSE. Addendum: 06/17/23 at 1048 by JUANY Patient's assessment done to best of RN's ability. Patient is not answering questions appropriately.
--- NOTE | 2023-06-17 07:40 | NUR ---
breakfast order faxed to dietary
[2023-06-17 08:49] LABS: BASOPHILS # (AUTO) 0.1 X10'3 (0-0.2); BASOPHILS % (AUTO) 0.9 % (0-1); EOSINOPHILS # (AUTO) 0.1 X10'3 (0-0.9); EOSINOPHILS % (AUTO) 1.3 % (0-6); HEMATOCRIT 37.7 % (35.0-45.0); HEMOGLOBIN 12.7 g/dl (12.0-16.0); LYMPHOCYTES % (AUTO) 29.9 % (21-51); MEAN CORPUSCULAR HEMOGLOBIN 30.2 PG (27.0-31.0); MEAN CORPUSCULAR HGB CONC 33.8 g/dL (33.0-36.5); MEAN CORPUSCULAR VOLUME 89.4 FL (78-98); MEAN PLATELET VOLUME 8.1 FL (7.4-10.4); MONOCYTES # (AUTO) 0.7 X10'3 (0-0.9); MONOCYTES % (AUTO) 9.9 % (2-12); NEUTROPHILS # (AUTO) 3.9 X10'3 (1.8-7.7); PLATELET COUNT 278 X10'3 (140-440); RED BLOOD COUNT 4.22 X10'6 (4.20-5.60); RED CELL DISTRIBUTION WIDTH 13.5 % (11.5-14.5); WHITE BLOOD COUNT 6.7 X10'3 (4.5-11.0)
[2023-06-17 09:04] LABS: ALANINE AMINOTRANSFERASE 31 U/L (12-78); ALBUMIN 3.9 G/DL (3.4-5.0); ALBUMIN/GLOBULIN RATIO 1.2 (1.1-1.5); ALKALINE PHOSPHATASE 97 IU/L (46-116); ANION GAP 11 (8-16); ASPARTATE AMINO TRANSFERASE 48 U/L (10-37); BILIRUBIN,TOTAL 0.5 MG/DL (0.1-1.0); BLOOD UREA NITROGEN 14 MG/DL (7-18); BUN/CREATININE RATIO 17.9 (10.0-20.0); CALCIUM 8.7 MG/DL (8.5-10.1); CHLORIDE 105 MMOL/L (99-107); CREATININE 0.78 MG/DL (0.40-0.90); ETHANOL < 10 MG/DL (<10); GLUCOSE 77 MG/DL (70-104); POTASSIUM 3.1 MMOL/L (3.5-5.1); SODIUM 140 MMOL/L (135-145); TOTAL CARBON DIOXIDE 23.9 MMOL/L (24-32); TOTAL PROTEIN 7.1 G/DL (6.4-8.2); eCRCL 86 ML/MIN; eGFR 89 ML/MIN
[2023-06-17] MEDS ORDERED: potassium Cl 20 mEq SR tablet PO ONE (09:35)
--- NOTE | 2023-06-17 10:29 | NUR ---
pt given breakfast tray. she continues to display bizarre behavior. laughing at nothing and speaking to people who aren't in the room.
[2023-06-17 11:54] LABS: URINE HCG NEGATIVE (NEG)
[2023-06-17 12:23] LABS: URINE AMPHETAMINE SCREEN POSITIVE (Neg); URINE BARBITUATE SCREEN NEGATIVE (Neg); URINE BENZODIAZEPINES SCREEN NEGATIVE (Neg); URINE CANNABINOID SCREEN POSITIVE (Neg); URINE COCAINE SCREEN POSITIVE (Neg); URINE OPIATE SCREEN NEGATIVE (Neg); URINE PHENCYCLIDINE SCREEN NEGATIVE (Neg)
--- NOTE | 2023-06-17 12:41 | NUR ---
[facility] PACKET FAXED.
--- NOTE | 2023-06-17 13:44 | NUR ---
Chava ESCAMILLA, evaluating patient. Patient laughing and crying inappropriately. Continue to monitor.
--- NOTE | 2023-06-17 15:13 | NUR ---
Patient stated she needs her antibiotics. Patient has not taken them and left them at [facility]. RN spoke to Dr Mcgraw who stated patient does not need antibiotics. RN advised patient and patient started screaming for her antibiotics. Patient demanding her belongings and threatening to leave. Security was called and they talked patient into going back to her room. Patient allowed medication to be given. Patient calmed down and laying quietly in bed. Continue to monitor.
[2023-06-17] MEDS ORDERED: diphenhydrAMINE 50 mg/ml inj ONE (15:23)
[2023-06-17] MEDS ORDERED: haloperidol lactate 5mg/ml inj ONE (15:23)
[2023-06-17] MEDS ORDERED: LORazepam 2 mg/ml vial ONE (15:24)
--- NOTE | 2023-06-17 17:09 | NUR ---
Patient sleeping on her right side. Respirations nonlabored. Continue to monitor.
--- NOTE | 2023-06-17 19:00 | NUR ---
The patient appears to be sleeping. She did not awaken for her evening dinner.
[2023-06-17] MEDS ORDERED: NO HOME MEDS (20:32)
--- NOTE | 2023-06-17 21:00 | NUR ---
The patient appears to be sleeping
--- NOTE | 2023-06-17 23:00 | NUR ---
The patient appears to be sleeping
--- NOTE | 2023-06-18 01:01 | NUR ---
The patient appears to be sleeping
--- NOTE | 2023-06-18 03:06 | NUR ---
The patient appears to be sleeping
--- NOTE | 2023-06-18 05:01 | NUR ---
The patient appears to be sleeping
[2023-06-18] MEDS: propranolol 10mg tablet PO SCH ×2 (08:32→20:03)
[2023-06-18] MEDS: haloperidol 5mg tablet PO SCH ×3 (08:32→20:03)
--- NOTE | 2023-06-18 09:50 | NUR ---
Patient ate her breakfast and took her medications without incident. Patient recognizes RN from previous admits from [facility]. Patient calm and cooperative. Sleeping at this time.
--- NOTE | 2023-06-18 11:37 | NUR ---
RN breaking primary nurse for lunch. Pt. asleep on left side.
--- NOTE | 2023-06-18 12:21 | NUR ---
Patient ate her lunch and is now sleeping.
--- NOTE | 2023-06-18 13:40 | NUR ---
Patient's mother came and visited her today for about 10 minutes. Patient is sleeping.
--- NOTE | 2023-06-18 14:06 | NUR ---
RN spoke with patient at bedside. She states that she has no suicidal ideations today. She said that yesterday she was paranoid that someone was out to get her. Patient sleeping most of the day.
--- NOTE | 2023-06-18 19:31 | NUR ---
The patient is sleeping on her bed after eating 100% of her dinner tray. She denies that she is feeling suicidal or hearing voices but she also states she feels very sleepy. She did not open her eyes during the assessment. She has no physical complaints at this time.
[2023-06-18] MEDS: diphenhydrAMINE 25mg capsule PO SCH (20:02)
--- NOTE | 2023-06-18 20:44 | NUR ---
The patient appears to be sleeping
--- NOTE | 2023-06-18 23:04 | NUR ---
The patient appears to be sleeping
--- NOTE | 2023-06-19 01:07 | NUR ---
The patient appears to be sleeping
--- NOTE | 2023-06-19 03:00 | NUR ---
The patient appears to be sleeping
--- NOTE | 2023-06-19 05:07 | NUR ---
The patient appears to be sleeping
--- NOTE | 2023-06-19 06:31 | NUR ---
Patiwent sleeping in supine posotion. RR even and unlabored. No s/sx of distress.
--- NOTE | 2023-06-19 07:00 | NUR ---
Patient is awake and using the restroom. Denies needs.
[2023-06-19] MEDS: haloperidol 5mg tablet PO SCH ×3 (09:58→21:00)
[2023-06-19] MEDS: propranolol 10mg tablet PO SCH ×2 (09:58→20:00)
--- NOTE | 2023-06-19 10:01 | NUR ---
Patient appears to be sleeping on her left side. No s/sx of distress.
--- NOTE | 2023-06-19 11:46 | NUR ---
Patient sitting on the side of her bed. She occasionally asks when [facility] will see her.
--- NOTE | 2023-06-19 12:48 | NUR ---
RN breaking primary RN for lunch. Pt. is awake and eating lunch at bedside.
[2023-06-19] MEDS ORDERED: acetaminophen 325mg tablet PO PRN (12:55)
--- NOTE | 2023-06-19 14:35 | NUR ---
[facility] called for 1:1. Will call if accepted.
--- NOTE | 2023-06-19 14:45 | NUR ---
Patient sleeping on her left side. RR even and unlabored. No s/sx of distress.
--- NOTE | 2023-06-19 14:56 | NUR ---
Patient has been accepted to [facility] [place] pending TSH and UA results.
--- NOTE | 2023-06-19 16:46 | NUR ---
Patient appears to be sleeping.
--- NOTE | 2023-06-19 17:44 | NUR ---
Patient sitting on her bed eating her dinner meal.
[2023-06-19 18:24] VITALS: BP 122/74; PULSE 66; TEMP 97.6; O2SAT 98
--- NOTE | 2023-06-19 18:35 | NUR ---
Received report from Caleb Mejia RN. Client is accepted at [facility] pending results of UA and TSH. TSH is WNL, UA pending. Notified [facility], they are arranging transport. Client will be transferred when UA results return. Client makes requests for medications for "ADHD", tooth ache, and feeling like she wants "to run". Client is pacing around bed.
[2023-06-19 18:43] LABS: BILIRUBIN,URINE NEGATIVE (Neg); CLARITY,URINE SLIGHTLY CLOUDY (Clear); COLOR,URINE STRAW (Yellow); GLUCOSE, URINE NEGATIVE (Neg); KETONES,URINE NEGATIVE (Neg); LEUKOCYTE ESTERASE ,URINE NEGATIVE (Neg); NITRITES, URINE NEGATIVE (Neg); OCCULT BLOOD,URINE NEGATIVE (Neg); PH,URINE 7.5 (4.8-8.0); PROTEIN,URINE NEGATIVE (Neg); UROBILINOGEN,URINE 0.2 E.U/dL (0.2-1.0)
[2023-06-19 18:59] LABS: UA COLLECTION TYPE NON-SPECIFIED
[2023-06-19 19:00] LABS: BACTERIA,URINE NONE SEEN /HPF (Neg); MUCUS STRANDS FEW /LPF (Neg); RBC,URINE 0-2 /HPF (0-2); SQUAMOUS EPITHELIAL CELL,UR FEW /LPF (FEW); WBC,URINE 0-4 /HPF (0-4)
--- NOTE | 2023-06-19 20:30 | NUR ---
Client fell asleep. Resting on right side. Resp even and unlabored.
[2023-06-19] MEDS: diphenhydrAMINE 25mg capsule PO SCH (21:00)
--- NOTE | 2023-06-19 21:00 | NUR ---
[employer] from [facility] here to transport client to [facility]. TSH and UA results faxed (earlier) to [facility]. Client was cooperative, changed into her clothes, and her personal belongings were returned. Ambulated to the lobby accompanied by [facility] transport and Security. Exited ED OF at 21:00.
[2023-06-19 22:10] VITALS: RESP 16
== END 2023-06-19 22:15 ==
LOC: ER 05:51
DX: R45.851 Suicidal ideations (principal); Z20.822 Contact with and (suspected) exposure to COVID-19; F29 Unspecified psychosis not due to a substance or known physiological condition; F31.9 Bipolar disorder, unspecified; F20.9 Schizophrenia, unspecified; F15.10 Other stimulant abuse, uncomplicated; Z59.00 Homelessness unspecified; Z56.0 Unemployment, unspecified
CPT/HCPCS: 36415; 80053; 80305; 80320; 81025; 85025; 87811; 99285; C2617; J1200; J1630; J2060; Q0163; 81001; 84443

== ENCOUNTER 2023-07-28 16:15 | Emergency (ER) | payer MEDICAID ==
[~2023-07-28] VITALS: Ht 160 cm; Wt 86.5 kg
[~2023-07-28 16:15] MED LIST changes: -AMOX-580 PO; -DIPH-423 PO; -HALO100A2 IM; -HALO5TAB PO; -HYDR-3686 PO; -HYDR50TA65 PO; -LOPE2CAP PO; -METR-159 PO; +NO HOME MEDS; -VALP250C3 PO
[2023-07-28 16:18] VITALS: BP 152/86; PULSE 115; RESP 18; TEMP 97.6; O2SAT 100
== END 2023-07-28 18:40 | disposition home or self-care (01) ==
LOC: ER 16:16
DX: F15.10 Other stimulant abuse, uncomplicated (principal); F12.90 Cannabis use, unspecified, uncomplicated; F17.210 Nicotine dependence, cigarettes, uncomplicated; Z72.89 Other problems related to lifestyle
CPT/HCPCS: 74018; 99283

== ENCOUNTER 2023-07-29 09:01 | Emergency (ER) | payer MEDICAID ==
[~2023-07-29] VITALS: Ht 160 cm; Wt 86.4 kg
[2023-07-29] MEDS ORDERED: LORazepam 2 mg/ml vial IV ONE (09:15)
[2023-07-29] MEDS ORDERED: haloperidol lactate 5mg/ml inj IVH ONE (09:15)
[2023-07-29] MEDS ORDERED: normal saline 1000ml 1,000 ML IV ONE (09:15)
[2023-07-29 10:46] LABS: URINE HCG NEGATIVE (NEG)
[2023-07-29 10:49] LABS: BILIRUBIN,URINE NEGATIVE (Neg); CLARITY,URINE CLOUDY (Clear); COLOR,URINE YELLOW (Yellow); GLUCOSE, URINE NEGATIVE (Neg); KETONES,URINE NEGATIVE (Neg); LEUKOCYTE ESTERASE ,URINE NEGATIVE (Neg); NITRITES, URINE NEGATIVE (Neg); OCCULT BLOOD,URINE NEGATIVE (Neg); PH,URINE 7.5 (4.8-8.0); PROTEIN,URINE NEGATIVE (Neg); UROBILINOGEN,URINE 0.2 E.U/dL (0.2-1.0)
[2023-07-29 10:50] LABS: BASOPHILS % (AUTO) 0.2 % (0-1); EOSINOPHILS % (AUTO) 0.1 % (0-6); HEMOGLOBIN 13.6 g/dl (12.0-16.0); LYMPHOCYTES # (AUTO) 1.2 X10'3 (1.1-4.8); LYMPHOCYTES % (AUTO) 13.6 % (21-51); MEAN CORPUSCULAR HEMOGLOBIN 30.4 PG (27.0-31.0); MEAN CORPUSCULAR VOLUME 89.6 FL (78-98); MEAN PLATELET VOLUME 8.4 FL (7.4-10.4); MONOCYTES # (AUTO) 0.6 X10'3 (0-0.9); MONOCYTES % (AUTO) 6.4 % (2-12); NEUTROPHILS # (AUTO) 7.3 X10'3 (1.8-7.7); NEUTROPHILS % (AUTO) 79.7 % (42-75); PLATELET COUNT 324 X10'3 (140-440); RED BLOOD COUNT 4.46 X10'6 (4.20-5.60); RED CELL DISTRIBUTION WIDTH 13.5 % (11.5-14.5); WHITE BLOOD COUNT 9.1 X10'3 (4.5-11.0)
[2023-07-29 11:04] LABS: UA COLLECTION TYPE CLN CATCH MIDSTREAM
[2023-07-29 11:10] LABS: ALANINE AMINOTRANSFERASE 41 U/L (12-78); ALBUMIN 4.4 G/DL (3.4-5.0); ALBUMIN/GLOBULIN RATIO 1.1 (1.1-1.5); ALKALINE PHOSPHATASE 94 IU/L (46-116); ANION GAP 10 (8-16); ASPARTATE AMINO TRANSFERASE 22 U/L (10-37); BILIRUBIN,TOTAL 0.5 MG/DL (0.1-1.0); BLOOD UREA NITROGEN 5 MG/DL (7-18); CALCIUM 10.3 MG/DL (8.5-10.1); CHLORIDE 102 MMOL/L (99-107); CREATININE 0.83 MG/DL (0.40-0.90); GLUCOSE 119 MG/DL (70-104); POTASSIUM 3.5 MMOL/L (3.5-5.1); SODIUM 138 MMOL/L (135-145); TOTAL CARBON DIOXIDE 26.3 MMOL/L (24-32); TOTAL PROTEIN 8.4 G/DL (6.4-8.2); eCRCL 85 ML/MIN; eGFR 83 ML/MIN
[2023-07-29 11:18] LABS: URINE AMPHETAMINE SCREEN NEGATIVE (Neg); URINE BARBITUATE SCREEN NEGATIVE (Neg); URINE BENZODIAZEPINES SCREEN NEGATIVE (Neg); URINE CANNABINOID SCREEN NEGATIVE (Neg); URINE COCAINE SCREEN NEGATIVE (Neg); URINE METHADONE SCREEN NEGATIVE (Neg); URINE OPIATE SCREEN NEGATIVE (Neg); URINE PHENCYCLIDINE SCREEN NEGATIVE (Neg)
[2023-07-29 11:23] LABS: ETHANOL < 10 MG/DL (<10)
[2023-07-29 11:23] LABS: SQUAMOUS EPITHELIAL CELL,UR MANY /LPF (FEW); TRANSITIONAL EPI CELLS,URINE FEW /HPF
[2023-07-29 11:29] LABS: BACTERIA,URINE 2+ /HPF (Neg)
[2023-07-29 11:32] LABS: WBC,URINE 0-4 /HPF (0-4)
[2023-07-29 11:36] LABS: RBC,URINE NONE SEEN /HPF (0-2)
[2023-07-29] MEDS ORDERED: diphenhydrAMINE 25mg capsule PO ONE (21:00)
[2023-07-29] MEDS ORDERED: quetiapine 100mg tablet PO SCH (22:30)
[2023-07-29] MEDS ORDERED: olanzapine 10mg tablet PO SCH (23:30)
[2023-07-29] MEDS ORDERED: LORazepam 1 MG tablet PO ONE (23:30)
[2023-07-30] MEDS ORDERED: LORazepam 2 mg/ml vial IM ONE (09:35)
[2023-07-30] MEDS ORDERED: haloperidol lactate 5mg/ml inj IM ONE (09:35)
[2023-07-30 12:04] VITALS: BP 120/63; PULSE 72; RESP 16; TEMP 98; O2SAT 99
== END 2023-07-30 12:15 ==
LOC: ER 09:01
DX: F29 Unspecified psychosis not due to a substance or known physiological condition (principal); Z20.822 Contact with and (suspected) exposure to COVID-19; F20.9 Schizophrenia, unspecified
CPT/HCPCS: 36415; 80053; 80305; 80320; 81001; 81025; 85025; 87811; 93005; 96374; 96375; 99285; J1630; J2060; Q0163

== ENCOUNTER 2024-11-04 20:47 | Emergency (ER) | payer MEDICAID ==
[2024-11-04 20:52] VITALS: BP 156/87; PULSE 114; RESP 18; O2SAT 94
[2024-11-04] MEDS: OLANZapine 5mg rapidly disint. tablet PO STA (22:25)
[2024-11-04] MEDS: benztropine 1mg tablet PO STA (22:25)
[2024-11-04] MEDS ORDERED: OLAN10TA3 PO (23:26)
[2024-11-04] MEDS ORDERED: BENZ1TAB97 PO (23:28)
[2024-11-05] MEDS: ibuprofen tablet 400 MG TABLET PO STA (00:02)
[2024-11-05] MEDS: acetaminophen 325mg tablet PO STA (00:02)
[2024-11-05] MEDS: ondansetron 4mg rapidly disintigrating tab PO ONE (00:03)
[2024-11-05 00:10] VITALS: TEMP 98.9
== END 2024-11-05 00:22 | disposition home or self-care (01) ==
LOC: ER 20:48
DX: S01.01XA Laceration without foreign body of scalp, initial encounter (principal); F20.9 Schizophrenia, unspecified; F32.A Depression, unspecified; F12.90 Cannabis use, unspecified, uncomplicated; F15.90 Other stimulant use, unspecified, uncomplicated; Z59.00 Homelessness unspecified; Z56.0 Unemployment, unspecified; Z79.899 Other long term (current) drug therapy; Z60.2 Problems related to living alone; W22.8XXA Striking against or struck by other objects, initial encounter; Y93.89 Activity, other specified; Y92.89 Other specified places as the place of occurrence of the external cause; Y99.8 Other external cause status
CPT/HCPCS: 12002; 99284; A6446; A6449

== ENCOUNTER 2024-11-30 01:05 | Inpatient (IN) | payer MEDICAID ==
[~2024-11-30] VITALS: Ht 160 cm; Wt 65.3 kg
[~2024-11-30 01:05] MED LIST changes: +BENZ1TAB97 PO; +OLAN10TA3 PO
[2024-11-30 01:33] LABS: BASOPHILS % (AUTO) 0.2 % (0-1); EOSINOPHILS # (AUTO) 0.1 X10'3 (0-0.9); HEMATOCRIT 32.4 % (35.0-45.0); HEMOGLOBIN 10.9 g/dl (12.0-16.0); LYMPHOCYTES # (AUTO) 1.5 X10'3 (1.1-4.8); LYMPHOCYTES % (AUTO) 15.2 % (21-51); MEAN CORPUSCULAR HEMOGLOBIN 30.6 PG (27.0-31.0); MEAN CORPUSCULAR HGB CONC 33.7 g/dL (33.0-36.5); MEAN CORPUSCULAR VOLUME 90.7 FL (78-98); MEAN PLATELET VOLUME 7.9 FL (7.4-10.4); MONOCYTES # (AUTO) 0.6 X10'3 (0-0.9); MONOCYTES % (AUTO) 6.2 % (2-12); NEUTROPHILS # (AUTO) 7.8 X10'3 (1.8-7.7); NEUTROPHILS % (AUTO) 77.4 % (42-75); PLATELET COUNT 293 X10'3 (140-440); RED BLOOD COUNT 3.58 X10'6 (4.20-5.60); RED CELL DISTRIBUTION WIDTH 12.7 % (11.5-14.5); WHITE BLOOD COUNT 10.1 X10'3 (4.5-11.0)
[2024-11-30 01:44] LABS: ALBUMIN 3.3 G/DL (3.4-5.0); ANION GAP 7 (8-16); BLOOD UREA NITROGEN 7 MG/DL (7-18); BUN/CREATININE RATIO 10.8 (10.0-20.0); CALCIUM 8.4 MG/DL (8.5-10.1); CHLORIDE 106 MMOL/L (99-107); CREATININE 0.65 MG/DL (0.40-0.90); GLUCOSE 85 MG/DL (70-104); POTASSIUM 3.5 MMOL/L (3.5-5.1); SODIUM 139 MMOL/L (135-145); TOTAL CARBON DIOXIDE 25.7 MMOL/L (24-32); eCRCL 107 ML/MIN; eGFR > 90 ML/MIN
[2024-11-30 02:57] LABS: BILIRUBIN,URINE NEGATIVE (Neg); CLARITY,URINE CLOUDY (Clear); COLOR,URINE YELLOW (Yellow); GLUCOSE, URINE NEGATIVE (Neg); KETONES,URINE NEGATIVE (Neg); LEUKOCYTE ESTERASE ,URINE NEGATIVE (Neg); NITRITES, URINE NEGATIVE (Neg); OCCULT BLOOD,URINE TRACE-INTACT (Neg); PROTEIN,URINE NEGATIVE (Neg); UROBILINOGEN,URINE 0.2 E.U/dL (0.2-1.0)
[2024-11-30 03:01] LABS: UA COLLECTION TYPE CLN CATCH MIDSTREAM
[2024-11-30 03:06] LABS: BACTERIA,URINE 3+ /HPF (Neg); RBC,URINE 0-2 /HPF (0-2); SQUAMOUS EPITHELIAL CELL,UR MODERATE /LPF (FEW)
[2024-11-30 03:22] LABS: URINE HCG NEGATIVE (NEG)
[2024-11-30 03:35] LABS: ETHANOL < 10 MG/DL (<10); THYROID STIMULATING HORMONE 1.42 ulU/ml (0.34-4.50)
[2024-11-30 03:40] LABS: URINE AMPHETAMINE SCREEN POSITIVE (Neg); URINE BARBITUATE SCREEN NEGATIVE (Neg); URINE BENZODIAZEPINES SCREEN NEGATIVE (Neg); URINE CANNABINOID SCREEN NEGATIVE (Neg); URINE COCAINE SCREEN NEGATIVE (Neg); URINE METHADONE SCREEN NEGATIVE (Neg); URINE OPIATE SCREEN NEGATIVE (Neg); URINE PHENCYCLIDINE SCREEN NEGATIVE (Neg)
[2024-11-30 09:11] LABS: C-REACTIVE PROTEIN 3.91 MG/DL (0.0-0.5)
[2024-11-30] MEDS: ketorolac trometh 15mg/ml vial 15 MG/ML ML IV ONE (09:39)
[2024-11-30] MEDS ORDERED: iohexol 300mg/ml 100ml inj. ONE (09:51)
[2024-11-30] MEDS ORDERED: acetaminophen 325mg tablet PO PRN (09:55)
[2024-11-30] MEDS ORDERED: mag hydrox/Alum hydrox/simeth 30ml oral suspension PO PRN (09:55)
[2024-11-30] MEDS ORDERED: vancomycin inj 1,000 MG in normal saline 250ml IV soln 250 ML IV ONE (09:55)
[2024-11-30] MEDS ORDERED: potassium Cl 40MEQ/1/2NS 520ml 520 ML IV PRN (09:55)
[2024-11-30] MEDS ORDERED: magnesium hydroxide 30ml (MOM) UD suspension PO PRN (09:55)
[2024-11-30] MEDS ORDERED: magnesium sulf-water 4G/100mL 100 ML IV PRN (09:55)
[2024-11-30] MEDS ORDERED: HYDROcodone/acetaminophen 5mg/325mg tablet PO PRN ×2 (09:55→14:05)
[2024-11-30] MEDS ORDERED: magnesium sulf-water 2g/50mL 50 ML IV PRN (09:55)
[2024-11-30] MEDS ORDERED: potassium Cl 20 mEq SR tablet PO PRN ×2 (09:55)
[2024-11-30] MEDS: ceFAZolin 2gm in dextrose, iso 50 ML IV ONE (10:20)
[2024-11-30] MEDS: normal saline 1000ml 1,000 ML IV SCH (10:20)
[2024-11-30] MEDS: diatr meglu/diatrizoate 30ml oral sol.-(3 dose) bottle PO SCH (10:20)
[2024-11-30] MEDS: vancomycin/NS 1 GM ADD-VANTAGE 250 ML IV SCH ×2 (10:55→20:04)
[2024-11-30] MEDS: HYDROcodone/acetaminophen 10/325mg tab PO PRN (12:35)
[2024-11-30 12:51] VITALS: RESP 16; O2SAT 97
[2024-11-30] MEDS ORDERED: BENZ1TAB78 PO (13:08)
[2024-11-30] MEDS ORDERED: OLAN5TAB75 PO (13:08)
[2024-11-30] MEDS ORDERED: OLAN10TA73 PO (13:08)
[2024-11-30] MEDS ORDERED: ONDA-243 PO (13:09)
[2024-11-30 13:40] VITALS: BP 116/64; PULSE 76; RESP 18; TEMP 97.9; O2SAT 97
[2024-11-30] MEDS ORDERED: HYDROcodone/acetaminophen 10/325mg tab PO PRN (14:05)
[2024-11-30] MEDS ORDERED: ceFAZolin 2gm in dextrose, iso 50 ML IV ONE (16:00)
[2024-11-30] MEDS: ceFAZolin 2gm in dextrose, iso 50 ML IV SCH (16:52)
[2024-11-30 18:00] VITALS: BP 116/63; PULSE 91; RESP 16; TEMP 98.1; O2SAT 98
[2024-11-30] MEDS: K and/or MAG REPLACEMENT MC SCH (20:00)
[2024-11-30] MEDS: docusate sod 100mg capsule PO SCH (20:03)
[2024-11-30 20:10] VITALS: RESP 16
[2024-11-30 22:00] VITALS: BP 98/62; PULSE 71; RESP 16; TEMP 98.3; O2SAT 99
[2024-12-01] VITALS (7 sets, daily range): BP systolic 96–125; BP diastolic 44–69; PULSE 69–84; RESP 14–16; TEMP 96.8–99.1; O2SAT 97–99
[2024-12-01 04:37] LABS: BASOPHILS % (AUTO) 0.5 % (0-1); EOSINOPHILS # (AUTO) 0.1 X10'3 (0-0.9); EOSINOPHILS % (AUTO) 2.5 % (0-6); HEMATOCRIT 26.6 % (35.0-45.0); HEMOGLOBIN 9.1 g/dl (12.0-16.0); LYMPHOCYTES # (AUTO) 1.2 X10'3 (1.1-4.8); LYMPHOCYTES % (AUTO) 29.1 % (21-51); MEAN CORPUSCULAR HGB CONC 34.4 g/dL (33.0-36.5); MEAN CORPUSCULAR VOLUME 90.4 FL (78-98); MEAN PLATELET VOLUME 7.9 FL (7.4-10.4); MONOCYTES # (AUTO) 0.3 X10'3 (0-0.9); MONOCYTES % (AUTO) 8.1 % (2-12); NEUTROPHILS # (AUTO) 2.4 X10'3 (1.8-7.7); NEUTROPHILS % (AUTO) 59.8 % (42-75); PLATELET COUNT 227 X10'3 (140-440); RED BLOOD COUNT 2.94 X10'6 (4.20-5.60); RED CELL DISTRIBUTION WIDTH 12.8 % (11.5-14.5)
[2024-12-01 04:47] LABS: HCG SERUM QL NEGATIVE
[2024-12-01 04:56] LABS: ALANINE AMINOTRANSFERASE 18 U/L (12-78); ALBUMIN 2.6 G/DL (3.4-5.0); ALKALINE PHOSPHATASE 81 IU/L (46-116); ANION GAP 7 (8-16); ASPARTATE AMINO TRANSFERASE 10 U/L (10-37); BILIRUBIN,TOTAL 0.2 MG/DL (0.1-1.0); BLOOD UREA NITROGEN 6 MG/DL (7-18); BUN/CREATININE RATIO 10.3 (10.0-20.0); CALCIUM 7.9 MG/DL (8.5-10.1); CHLORIDE 106 MMOL/L (99-107); CREATININE 0.58 MG/DL (0.40-0.90); GLUCOSE 80 MG/DL (70-104); MAGNESIUM 1.9 MG/DL (1.5-2.4); POTASSIUM 3.6 MMOL/L (3.5-5.1); SODIUM 141 MMOL/L (135-145); TOTAL CARBON DIOXIDE 28.3 MMOL/L (24-32); TOTAL PROTEIN 5.1 G/DL (6.4-8.2); eCRCL 119 ML/MIN; eGFR > 90 ML/MIN
[2024-12-01] MEDS: VANCOMYCIN LEVEL IV ONE (10:56)
[2024-12-01] MEDS: ondansetron/PF 4mg/2ml inj IV PRN (20:33)
[2024-12-01] MEDS: VANCOmycin 1250MG/NS 250ml Bag 250 ML IV SCH (20:35)
[2024-12-01] MEDS: olanzapine 10mg tablet PO SCH (20:36)
[2024-12-01] MEDS: acetaminophen 325mg tablet PO PRN (20:36)
[2024-12-02 04:58] LABS: BASOPHILS % (AUTO) 0.5 % (0-1); EOSINOPHILS # (AUTO) 0.1 X10'3 (0-0.9); EOSINOPHILS % (AUTO) 2.5 % (0-6); HEMATOCRIT 27.7 % (35.0-45.0); HEMOGLOBIN 9.6 g/dl (12.0-16.0); LYMPHOCYTES # (AUTO) 1.1 X10'3 (1.1-4.8); LYMPHOCYTES % (AUTO) 32.8 % (21-51); MEAN CORPUSCULAR HEMOGLOBIN 31.3 PG (27.0-31.0); MEAN CORPUSCULAR HGB CONC 34.7 g/dL (33.0-36.5); MEAN CORPUSCULAR VOLUME 90.2 FL (78-98); MEAN PLATELET VOLUME 8.1 FL (7.4-10.4); MONOCYTES # (AUTO) 0.3 X10'3 (0-0.9); MONOCYTES % (AUTO) 7.2 % (2-12); PLATELET COUNT 253 X10'3 (140-440); RED BLOOD COUNT 3.07 X10'6 (4.20-5.60); RED CELL DISTRIBUTION WIDTH 12.4 % (11.5-14.5); WHITE BLOOD COUNT 3.5 X10'3 (4.5-11.0)
[2024-12-02 05:13] LABS: ALANINE AMINOTRANSFERASE 26 U/L (12-78); ALBUMIN 2.4 G/DL (3.4-5.0); ALBUMIN/GLOBULIN RATIO 0.9 (1.1-1.5); ALKALINE PHOSPHATASE 93 IU/L (46-116); ANION GAP 3 (8-16); ASPARTATE AMINO TRANSFERASE 26 U/L (10-37); BILIRUBIN,TOTAL 0.3 MG/DL (0.1-1.0); BLOOD UREA NITROGEN 3 MG/DL (7-18); BUN/CREATININE RATIO 4.8 (10.0-20.0); CALCIUM 7.9 MG/DL (8.5-10.1); CHLORIDE 108 MMOL/L (99-107); CREATININE 0.63 MG/DL (0.40-0.90); GLUCOSE 75 MG/DL (70-104); MAGNESIUM 1.7 MG/DL (1.5-2.4); POTASSIUM 3.5 MMOL/L (3.5-5.1); SODIUM 142 MMOL/L (135-145); TOTAL PROTEIN 5.2 G/DL (6.4-8.2); eCRCL 110 ML/MIN; eGFR > 90 ML/MIN
[2024-12-02 06:00] VITALS: BP 106/71; PULSE 65; RESP 16; TEMP 97.1; O2SAT 99
[2024-12-02] MEDS: OLANZAPINE 5 MG TABLET PO SCH (09:40)
[2024-12-02] MEDS: benztropine 1mg tablet PO SCH (09:40)
[2024-12-02 10:00] VITALS: BP 124/81; PULSE 82; RESP 16; TEMP 97.8; O2SAT 98
[2024-12-02 15:38] VITALS: RESP 16; O2SAT 98
[2024-12-02 18:00] VITALS: BP 129/75; PULSE 78; RESP 24; TEMP 98.1; O2SAT 98
[2024-12-02] MEDS: VANCOMYCIN LEVEL IV ONE (19:14)
[2024-12-02] MEDS: levoFLOXACIN 750MG TABLET PO ONE (19:21)
[2024-12-02 22:00] VITALS: BP 127/68; PULSE 77; RESP 14; TEMP 98.3; O2SAT 97
[2024-12-03 04:37] LABS: BASOPHILS % (AUTO) 0.3 % (0-1); EOSINOPHILS # (AUTO) 0.1 X10'3 (0-0.9); EOSINOPHILS % (AUTO) 2.6 % (0-6); HEMOGLOBIN 11.4 g/dl (12.0-16.0); LYMPHOCYTES # (AUTO) 1.8 X10'3 (1.1-4.8); LYMPHOCYTES % (AUTO) 40.2 % (21-51); MEAN CORPUSCULAR HEMOGLOBIN 31.1 PG (27.0-31.0); MEAN CORPUSCULAR HGB CONC 34.7 g/dL (33.0-36.5); MEAN CORPUSCULAR VOLUME 89.6 FL (78-98); MEAN PLATELET VOLUME 7.8 FL (7.4-10.4); MONOCYTES # (AUTO) 0.3 X10'3 (0-0.9); MONOCYTES % (AUTO) 7.3 % (2-12); NEUTROPHILS # (AUTO) 2.3 X10'3 (1.8-7.7); NEUTROPHILS % (AUTO) 49.6 % (42-75); PLATELET COUNT 316 X10'3 (140-440); RED BLOOD COUNT 3.68 X10'6 (4.20-5.60); RED CELL DISTRIBUTION WIDTH 12.6 % (11.5-14.5); WHITE BLOOD COUNT 4.6 X10'3 (4.5-11.0)
[2024-12-03 04:56] LABS: ALANINE AMINOTRANSFERASE 37 U/L (12-78); ALBUMIN 2.7 G/DL (3.4-5.0); ALBUMIN/GLOBULIN RATIO 0.8 (1.1-1.5); ALKALINE PHOSPHATASE 125 IU/L (46-116); ANION GAP 5 (8-16); ASPARTATE AMINO TRANSFERASE 24 U/L (10-37); BILIRUBIN,TOTAL 0.4 MG/DL (0.1-1.0); BLOOD UREA NITROGEN 4 MG/DL (7-18); BUN/CREATININE RATIO 5.6 (10.0-20.0); CALCIUM 8.5 MG/DL (8.5-10.1); CHLORIDE 108 MMOL/L (99-107); CREATININE 0.71 MG/DL (0.40-0.90); GLUCOSE 79 MG/DL (70-104); MAGNESIUM 1.7 MG/DL (1.5-2.4); POTASSIUM 4.1 MMOL/L (3.5-5.1); SODIUM 142 MMOL/L (135-145); TOTAL CARBON DIOXIDE 29.1 MMOL/L (24-32); TOTAL PROTEIN 6.3 G/DL (6.4-8.2); eCRCL 98 ML/MIN; eGFR > 90 ML/MIN
[2024-12-03 06:00] VITALS: BP 116/68; PULSE 73; RESP 14; TEMP 98.4; O2SAT 98
[2024-12-03 08:00] VITALS: RESP 16; O2SAT 99
[2024-12-03] MEDS ORDERED: LIDOcaine 40mg/ml topical solution MM ONE (08:10)
[2024-12-03] MEDS: LIDOcaine 4% (40 mg/ml) topical solution 50ml MM ONE (08:30)
[2024-12-03 10:21] VITALS: BP 115/77; RESP 20; TEMP 98.2; O2SAT 97
[2024-12-03] MEDS ORDERED: LEVO750T68 PO (11:34)
[2024-12-03] MEDS ORDERED: ONDA-243 PO (11:34)
[2024-12-03] MEDS ORDERED: DOXY-224 PO (11:34)
[2024-12-03] MEDS: levoFLOXACIN 750MG TABLET PO SCH (12:30)
[2024-12-03 18:00] VITALS: BP 116/76; PULSE 77; RESP 15; TEMP 97.7; O2SAT 96
[2024-12-03 22:00] VITALS: BP 111/76; PULSE 82; RESP 14; TEMP 97.6; O2SAT 96
[2024-12-04 06:00] VITALS: BP 114/77; PULSE 75; RESP 16; TEMP 98; O2SAT 98
[2024-12-04 06:19] LABS: BASOPHILS % (AUTO) 0.2 % (0-1); EOSINOPHILS # (AUTO) 0.1 X10'3 (0-0.9); HEMATOCRIT 33.3 % (35.0-45.0); HEMOGLOBIN 11.5 g/dl (12.0-16.0); LYMPHOCYTES # (AUTO) 1.5 X10'3 (1.1-4.8); LYMPHOCYTES % (AUTO) 34.2 % (21-51); MEAN CORPUSCULAR HEMOGLOBIN 30.8 PG (27.0-31.0); MEAN CORPUSCULAR HGB CONC 34.6 g/dL (33.0-36.5); MEAN CORPUSCULAR VOLUME 88.9 FL (78-98); MEAN PLATELET VOLUME 8.1 FL (7.4-10.4); MONOCYTES # (AUTO) 0.4 X10'3 (0-0.9); MONOCYTES % (AUTO) 8.9 % (2-12); NEUTROPHILS # (AUTO) 2.3 X10'3 (1.8-7.7); NEUTROPHILS % (AUTO) 53.7 % (42-75); PLATELET COUNT 325 X10'3 (140-440); RED BLOOD COUNT 3.75 X10'6 (4.20-5.60); RED CELL DISTRIBUTION WIDTH 12.6 % (11.5-14.5); WHITE BLOOD COUNT 4.3 X10'3 (4.5-11.0)
[2024-12-04 06:21] LABS: ALANINE AMINOTRANSFERASE 23 U/L (12-78); ALBUMIN 2.7 G/DL (3.4-5.0); ALBUMIN/GLOBULIN RATIO 0.8 (1.1-1.5); ALKALINE PHOSPHATASE 109 IU/L (46-116); ANION GAP 5 (8-16); ASPARTATE AMINO TRANSFERASE 13 U/L (10-37); BILIRUBIN,TOTAL 0.3 MG/DL (0.1-1.0); BLOOD UREA NITROGEN 7 MG/DL (7-18); BUN/CREATININE RATIO 10.6 (10.0-20.0); CALCIUM 8.5 MG/DL (8.5-10.1); CHLORIDE 107 MMOL/L (99-107); CREATININE 0.66 MG/DL (0.40-0.90); GLUCOSE 81 MG/DL (70-104); MAGNESIUM 1.6 MG/DL (1.5-2.4); POTASSIUM 3.8 MMOL/L (3.5-5.1); SODIUM 139 MMOL/L (135-145); TOTAL PROTEIN 6.3 G/DL (6.4-8.2); eCRCL 105 ML/MIN; eGFR > 90 ML/MIN
[2024-12-04] MEDS ORDERED: HYDR-3972 PO (09:12)
[2024-12-04 09:30] VITALS: RESP 18; O2SAT 99
[2024-12-04 10:00] VITALS: BP 117/82; PULSE 92; RESP 20; TEMP 98; O2SAT 96
[2024-12-04] MEDS: Dakins solution (1/4 strength) 473ml solution TP SCH (11:10)
[2024-12-04 11:20] VITALS: RESP 18
== END 2024-12-04 11:43 | disposition home or self-care (01) | DRG 383 ==
LOC: ER 01:06 → ED HOLD 10:00 → SUR 3N 12:10
PROVIDERS: ADMIT Family Medicine; ATTEND Family Medicine
PROC: BW211ZZ Computerized Tomography (CT Scan) of Abdomen and Pelvis using Low Osmolar Contrast (ICD-10-PCS; principal; 2024-11-30)
DX: L03.311 Cellulitis of abdominal wall (principal); F25.9 Schizoaffective disorder, unspecified; F31.9 Bipolar disorder, unspecified; Z20.822 Contact with and (suspected) exposure to COVID-19; S31.109A Unspecified open wound of abdominal wall, unspecified quadrant without penetration into peritoneal cavity, initial encounter; X58.XXXA Exposure to other specified factors, initial encounter; Z93.3 Colostomy status; Y93.89 Activity, other specified; Y92.89 Other specified places as the place of occurrence of the external cause; Y99.8 Other external cause status; Z59.00 Homelessness unspecified
CPT/HCPCS: 36415; 71045; 74177; 80048; 80053; 80202; 80305; 80320; 81001; 81025; 82948; 83605; 83735; 84145; 84443; 84703; 85025; 85651; 86140; 87040; 87070; 87077; 87081; 87088; 87186; 87811; 96374; 99285; A6196; A6213; A6253; A6449; C1758; G0378; J0690; J1885; J2405; J3370; J7030; Q9963; Q9967

== ENCOUNTER 2024-12-12 09:49 | Inpatient (IN) | payer MEDICAID ==
[~2024-12-12] VITALS: Ht 162.6 cm; Wt 87.0 kg
[~2024-12-12 09:49] MED LIST changes: +BENZ1TAB78 PO; -BENZ1TAB97 PO; +DOXY-224 PO; +HYDR-3972 PO; +LEVO750T68 PO; -NO HOME MEDS; -OLAN10TA3 PO; +OLAN10TA73 PO; +OLAN5TAB75 PO; +ONDA-243 PO
[2024-12-12 10:43] LABS: BASOPHILS % (AUTO) 0.4 % (0-1); EOSINOPHILS # (AUTO) 0.1 X10'3 (0-0.9); EOSINOPHILS % (AUTO) 1.4 % (0-6); HEMATOCRIT 30.6 % (35.0-45.0); HEMOGLOBIN 10.3 g/dl (12.0-16.0); LYMPHOCYTES # (AUTO) 1.6 X10'3 (1.1-4.8); LYMPHOCYTES % (AUTO) 20.2 % (21-51); MEAN CORPUSCULAR HEMOGLOBIN 30.2 PG (27.0-31.0); MEAN CORPUSCULAR HGB CONC 33.8 g/dL (33.0-36.5); MEAN CORPUSCULAR VOLUME 89.1 FL (78-98); MEAN PLATELET VOLUME 8.3 FL (7.4-10.4); MONOCYTES # (AUTO) 0.6 X10'3 (0-0.9); MONOCYTES % (AUTO) 7.4 % (2-12); NEUTROPHILS # (AUTO) 5.4 X10'3 (1.8-7.7); NEUTROPHILS % (AUTO) 70.6 % (42-75); PLATELET COUNT 335 X10'3 (140-440); RED BLOOD COUNT 3.43 X10'6 (4.20-5.60); RED CELL DISTRIBUTION WIDTH 12.6 % (11.5-14.5); WHITE BLOOD COUNT 7.7 X10'3 (4.5-11.0)
[2024-12-12 11:04] LABS: ALANINE AMINOTRANSFERASE 26 U/L (12-78); ALBUMIN 3.1 G/DL (3.4-5.0); ALBUMIN/GLOBULIN RATIO 1.1 (1.1-1.5); ALKALINE PHOSPHATASE 96 IU/L (46-116); ANION GAP 9 (8-16); ASPARTATE AMINO TRANSFERASE 17 U/L (10-37); BILIRUBIN,TOTAL 0.2 MG/DL (0.1-1.0); BLOOD UREA NITROGEN 6 MG/DL (7-18); BUN/CREATININE RATIO 8.3 (10.0-20.0); CALCIUM 8.3 MG/DL (8.5-10.1); CHLORIDE 106 MMOL/L (99-107); CREATININE 0.72 MG/DL (0.40-0.90); GLUCOSE 104 MG/DL (70-104); LIPASE 20 U/L (16-77); SODIUM 141 MMOL/L (135-145); TOTAL CARBON DIOXIDE 26.3 MMOL/L (24-32); eCRCL 100 ML/MIN; eGFR > 90 ML/MIN
[2024-12-12 11:06] LABS: POTASSIUM 2.8 MMOL/L (3.5-5.1)
[2024-12-12] MEDS ORDERED: iohexol 300mg/ml 100ml inj. ONE (11:08)
[2024-12-12] MEDS: potassium Cl 20 mEq SR tablet PO STA (11:52)
[2024-12-12 12:02] LABS: BILIRUBIN,URINE NEGATIVE (Neg); CLARITY,URINE CLEAR (Clear); COLOR,URINE YELLOW (Yellow); GLUCOSE, URINE NEGATIVE (Neg); KETONES,URINE NEGATIVE (Neg); LEUKOCYTE ESTERASE ,URINE TRACE (Neg); NITRITES, URINE NEGATIVE (Neg); OCCULT BLOOD,URINE NEGATIVE (Neg); PH,URINE 6.5 (4.8-8.0); PROTEIN,URINE NEGATIVE (Neg); UROBILINOGEN,URINE 0.2 E.U/dL (0.2-1.0)
[2024-12-12 12:04] LABS: URINE HCG NEGATIVE (NEG)
[2024-12-12 12:08] LABS: UA COLLECTION TYPE NON-SPECIFIED
[2024-12-12 12:10] LABS: BACTERIA,URINE 2+ /HPF (Neg); MUCUS STRANDS FEW /LPF (Neg); RBC,URINE 0-2 /HPF (0-2); SQUAMOUS EPITHELIAL CELL,UR MODERATE /LPF (FEW)
[2024-12-12 12:11] LABS: RENAL CELLS, URINE FEW /HPF; TRANSITIONAL EPI CELLS,URINE MODERATE /HPF; YEAST FEW /HPF (NEGATIVE)
[2024-12-12] MEDS: vancomycin/NS 1 GM ADD-VANTAGE 250 ML X 1 DOSE IV ONE (14:11)
[2024-12-12] MEDS ORDERED: magnesium hydroxide 30ml (MOM) UD suspension PO PRN (14:40)
[2024-12-12] MEDS: normal saline 1000ml 1,000 ML IV SCH (14:40)
[2024-12-12] MEDS ORDERED: acetaminophen 325mg tablet PO PRN (14:40)
[2024-12-12] MEDS ORDERED: potassium Cl 20 mEq SR tablet PO PRN (14:40)
[2024-12-12] MEDS ORDERED: magnesium sulf-water 4G/100mL 100 ML IV PRN (14:40)
[2024-12-12] MEDS ORDERED: magnesium Cl slow-release 64mg tablet PO PRN (14:40)
[2024-12-12] MEDS ORDERED: mag hydrox/Alum hydrox/simeth 30ml oral suspension PO PRN (14:40)
[2024-12-12] MEDS ORDERED: magnesium sulf-water 2g/50mL 50 ML IV PRN (14:40)
[2024-12-12] MEDS ORDERED: potassium Cl 40MEQ/1/2NS 520ml 520 ML IV PRN (14:40)
[2024-12-12] MEDS: normal saline 1000ml 1,000 ML IV ONE (14:44)
[2024-12-12] MEDS: levoFLOXACIN-Levaquin 750MG/D5 150 ML IV SCH (15:45)
[2024-12-12] MEDS: normal saline 1000ml 1,000 ML IVB ONE (16:50)
[2024-12-12 17:17] LABS: URINE AMPHETAMINE SCREEN POSITIVE (Neg); URINE BARBITUATE SCREEN NEGATIVE (Neg); URINE BENZODIAZEPINES SCREEN NEGATIVE (Neg); URINE CANNABINOID SCREEN NEGATIVE (Neg); URINE COCAINE SCREEN NEGATIVE (Neg); URINE METHADONE SCREEN NEGATIVE (Neg); URINE OPIATE SCREEN NEGATIVE (Neg); URINE PHENCYCLIDINE SCREEN NEGATIVE (Neg)
[2024-12-12 19:30] VITALS: BP 126/63; PULSE 77; RESP 16; TEMP 98.6; O2SAT 99
[2024-12-12 20:00] VITALS: RESP 16; O2SAT 99
[2024-12-12] MEDS: K and/or MAG REPLACEMENT MC SCH (20:04)
[2024-12-12] MEDS: olanzapine 10mg tablet PO SCH (20:56)
[2024-12-12] MEDS: docusate sod 100mg capsule PO SCH (20:56)
[2024-12-12] MEDS: heparin, porcine 5000 units/ml vial SQ SCH (20:57)
[2024-12-12] MEDS: ondansetron/PF 4mg/2ml inj IV PRN (21:24)
[2024-12-12] MEDS: HYDROcodone/acetaminophen 5mg/325mg tablet PO ONE (21:54)
[2024-12-12 22:00] VITALS: BP 121/77; PULSE 71; RESP 14; TEMP 98.3; O2SAT 99
[2024-12-12] MEDS: vancomycin/NS 1 GM ADD-VANTAGE 250 ML IV SCH (22:00)
[2024-12-13 05:53] LABS: BASOPHILS % (AUTO) 0.5 % (0-1); EOSINOPHILS # (AUTO) 0.1 X10'3 (0-0.9); EOSINOPHILS % (AUTO) 3.2 % (0-6); HEMATOCRIT 28.6 % (35.0-45.0); HEMOGLOBIN 9.7 g/dl (12.0-16.0); LYMPHOCYTES # (AUTO) 1.7 X10'3 (1.1-4.8); LYMPHOCYTES % (AUTO) 44.2 % (21-51); MEAN CORPUSCULAR HEMOGLOBIN 30.4 PG (27.0-31.0); MEAN CORPUSCULAR VOLUME 89.4 FL (78-98); MONOCYTES # (AUTO) 0.3 X10'3 (0-0.9); MONOCYTES % (AUTO) 8.1 % (2-12); NEUTROPHILS # (AUTO) 1.7 X10'3 (1.8-7.7); PLATELET COUNT 273 X10'3 (140-440); RED CELL DISTRIBUTION WIDTH 12.9 % (11.5-14.5); WHITE BLOOD COUNT 3.9 X10'3 (4.5-11.0)
[2024-12-13 06:00] VITALS: BP 104/52; PULSE 70; RESP 15; TEMP 98; O2SAT 98
[2024-12-13 06:24] LABS: ALANINE AMINOTRANSFERASE 24 U/L (12-78); ALBUMIN 2.5 G/DL (3.4-5.0); ALKALINE PHOSPHATASE 76 IU/L (46-116); ANION GAP 7 (8-16); ASPARTATE AMINO TRANSFERASE 13 U/L (10-37); BILIRUBIN,TOTAL 0.3 MG/DL (0.1-1.0); BLOOD UREA NITROGEN 2 MG/DL (7-18); BUN/CREATININE RATIO 3.1 (10.0-20.0); CHLORIDE 110 MMOL/L (99-107); CREATININE 0.65 MG/DL (0.40-0.90); GLUCOSE 115 MG/DL (70-104); MAGNESIUM 1.6 MG/DL (1.5-2.4); POTASSIUM 3.3 MMOL/L (3.5-5.1); SODIUM 144 MMOL/L (135-145); TOTAL CARBON DIOXIDE 27.2 MMOL/L (24-32); eCRCL 111 ML/MIN; eGFR > 90 ML/MIN
[2024-12-13] MEDS ORDERED: HYDROcodone/acetaminophen 10/325mg tab PO PRN (07:10)
[2024-12-13] MEDS ORDERED: HYDROcodone/acetaminophen 5mg/325mg tablet PO PRN (07:10)
[2024-12-13] MEDS ORDERED: morphine 2 MG/ML inj. syringe IV PRN ×2 (07:10)
[2024-12-13] MEDS ORDERED: acetaminophen 325mg tablet PO PRN (07:10)
[2024-12-13] MEDS: potassium Cl 20 mEq SR tablet PO PRN (07:39)
[2024-12-13] MEDS: OLANZAPINE 5 MG TABLET PO SCH (07:39)
[2024-12-13 07:49] VITALS: RESP 15; O2SAT 98
[2024-12-13 10:00] VITALS: BP 111/61; PULSE 71; RESP 15; TEMP 97.9; O2SAT 100
[2024-12-13] MEDS: VANCOMYCIN LEVEL IV ONE (14:18)
[2024-12-13 18:00] VITALS: BP 122/60; PULSE 69; RESP 15; TEMP 97.7; O2SAT 99
[2024-12-13 20:00] VITALS: RESP 15; O2SAT 99
[2024-12-13 22:00] VITALS: BP 126/63; PULSE 77; RESP 15; TEMP 98.6; O2SAT 99
[2024-12-13] MEDS: VANCOmycin 1250MG/NS 250ml Bag 250 ML IV SCH (22:17)
[2024-12-14 06:00] VITALS: BP 111/55; PULSE 61; RESP 16; TEMP 98.2; O2SAT 98
[2024-12-14 06:38] LABS: BASOPHILS % (AUTO) 0.6 % (0-1); EOSINOPHILS # (AUTO) 0.2 X10'3 (0-0.9); EOSINOPHILS % (AUTO) 3.9 % (0-6); HEMATOCRIT 31.5 % (35.0-45.0); HEMOGLOBIN 10.7 g/dl (12.0-16.0); LYMPHOCYTES % (AUTO) 45.4 % (21-51); MEAN CORPUSCULAR HEMOGLOBIN 29.9 PG (27.0-31.0); MEAN CORPUSCULAR HGB CONC 33.8 g/dL (33.0-36.5); MEAN CORPUSCULAR VOLUME 88.4 FL (78-98); MEAN PLATELET VOLUME 7.8 FL (7.4-10.4); MONOCYTES # (AUTO) 0.3 X10'3 (0-0.9); NEUTROPHILS # (AUTO) 1.9 X10'3 (1.8-7.7); NEUTROPHILS % (AUTO) 43.1 % (42-75); PLATELET COUNT 281 X10'3 (140-440); RED BLOOD COUNT 3.56 X10'6 (4.20-5.60); RED CELL DISTRIBUTION WIDTH 12.6 % (11.5-14.5); WHITE BLOOD COUNT 4.4 X10'3 (4.5-11.0)
[2024-12-14 06:55] LABS: ALANINE AMINOTRANSFERASE 19 U/L (12-78); ALBUMIN 2.5 G/DL (3.4-5.0); ALBUMIN/GLOBULIN RATIO 0.9 (1.1-1.5); ALKALINE PHOSPHATASE 78 IU/L (46-116); ANION GAP 4 (8-16); ASPARTATE AMINO TRANSFERASE 12 U/L (10-37); BILIRUBIN,TOTAL 0.3 MG/DL (0.1-1.0); BLOOD UREA NITROGEN 7 MG/DL (7-18); BUN/CREATININE RATIO 11.9 (10.0-20.0); CALCIUM 7.8 MG/DL (8.5-10.1); CHLORIDE 110 MMOL/L (99-107); CREATININE 0.59 MG/DL (0.40-0.90); GLUCOSE 81 MG/DL (70-104); MAGNESIUM 1.7 MG/DL (1.5-2.4); POTASSIUM 3.9 MMOL/L (3.5-5.1); SODIUM 143 MMOL/L (135-145); TOTAL CARBON DIOXIDE 28.9 MMOL/L (24-32); TOTAL PROTEIN 5.3 G/DL (6.4-8.2); eCRCL 123 ML/MIN; eGFR > 90 ML/MIN
[2024-12-14 07:19] VITALS: RESP 16; O2SAT 98
[2024-12-14 10:00] VITALS: BP 117/64; PULSE 72; RESP 17; TEMP 98.4; O2SAT 100
[2024-12-14] MEDS ORDERED: SULF1TAB49 PO (10:46)
[2024-12-14] MEDS ORDERED: JUVEN Shake w/Arg/Glut/Ca2+Bmb (Juven 19.3gm) pkt 240ml PO SCH (12:30)
[2024-12-14] MEDS ORDERED: VANCOMYCIN LEVEL IV ONE (21:30)
== END 2024-12-14 13:48 | disposition home or self-care (01) | DRG 721 ==
LOC: ER 09:49 → ED HOLD 14:34 → ORTHO 4S 19:39
PROVIDERS: ADMIT Family Medicine; ATTEND Family Medicine
PROC: BW211ZZ Computerized Tomography (CT Scan) of Abdomen and Pelvis using Low Osmolar Contrast (ICD-10-PCS; principal; 2024-12-12)
DX: T81.49XA Infection following a procedure, other surgical site, initial encounter (principal); L03.311 Cellulitis of abdominal wall; F20.9 Schizophrenia, unspecified; Y83.8 Other surgical procedures as the cause of abnormal reaction of the patient, or of later complication, without mention of misadventure at the time of the procedure; F15.10 Other stimulant abuse, uncomplicated; E87.6 Hypokalemia; F31.9 Bipolar disorder, unspecified; X58.XXXA Exposure to other specified factors, initial encounter; Z87.891 Personal history of nicotine dependence; Y93.89 Activity, other specified; Y99.8 Other external cause status; Y92.89 Other specified places as the place of occurrence of the external cause; Z93.3 Colostomy status; Z59.00 Homelessness unspecified; Z79.899 Other long term (current) drug therapy
CPT/HCPCS: 36415; 74177; 80053; 80202; 80305; 81001; 81025; 83605; 83690; 83735; 84145; 85025; 87040; 87070; 87077; 87081; 87088; 87186; 96374; 99285; A6223; A6253; A6446; A6449; G0378; J1644; J1956; J2405; J3370; J7030; Q9967

== ENCOUNTER 2025-02-24 06:39 | Emergency (ER) | payer MEDICAID ==
[~2025-02-24] VITALS: Ht 160 cm; Wt 87.0 kg
[~2025-02-24 06:39] MED LIST changes: -BENZ1TAB78 PO; -DOXY-224 PO; -HYDR-3972 PO; -LEVO750T68 PO; -ONDA-243 PO
[2025-02-24] MEDS: carbamide peroxide 15ml bottle LEFT EAR SCH (09:05)
[2025-02-24 09:21] VITALS: BP 142/86; PULSE 85; RESP 14; O2SAT 98
--- NOTE | 2025-02-24 09:48 | Physician Documentation ---
History of Present Illness ~ Chief Complaint: Leg Pain Stated Complaint: PUNCTURE WOUND Time Seen by MD: 08:32 Primary Medical Doctor: Mariana Adams 29-year-old female presents to the emergency room with two concerns. First of all, she reports that her right knee is painful, and she is having difficulty bearing weight. No injury reported. Secondly, she reports that she is having difficulty hearing out of her ears. Tetanus witin 5 years: No Medication Reconciliation Allergies: Coded Allergies: No Known Allergies (Unverified , 11/04/24) Scheduled Olanzapine (Olanzapine), 1 TAB PO DAILY, (Reported) Olanzapine (Olanzapine), 1 TAB PO HS, (Reported) Past Medical History Past Medical History: Bipolar, Depression, Schizophrenia Past Surgical History: abdominal surgery Other Past Surgical History: past colostomy Patient History: Patient reports no known family medical history. Other Past Family History: NONCONTRIBUTORY Alcohol Use: Heavy Drug Use: marijuana, methamphetamine Lives with: Alone Lives In: Homeless Occupation: unemployed Physical Exam Vital Signs: Heart Rate: 85, Respiratory Rate: 14, BP: 142/86, Pulse Oximetry: 98, Weight: 87.000 Oxygen Flow Rate: 0 Physical Exam General: Alert, no apparent distress. HEENT: PERRL, EOMI, no injection, moist mucous membranes. Normal ear exam on right. Left ear canal occluded with cerumen. Neck: Full range of motion. Respiratory: Lungs clear, no respiratory distress. Chest: No accessory muscle use. Cardiovascular: Regular rate and rhythm, no murmurs. Gastrointestinal: Soft, nontender, nondistended. Bowels sounds present. Extremities: Normal range of motion, no deformity. Able to bear weight and take a couple steps but reports knee weakness when doing so. Neurologic: Oriented x4. Psychiatric: Normal mood and affect. Skin: Normal color, warm and dry. No edema, no ecchymosis. Progress Results/Orders Results/Orders Orders - STEPHEN RODRIGUEZ NP Ortho Orders (02/24/25 08:47) Completed Orders - STEPHEN RODRIGUEZ NP Carbamide Peroxide Ear Drops (Debrox Ear (02/24/25 08:50) Medications Received in ER Medications (Trade) Dose Ordered Sig/Irma Route PRN Reason Start Time Stop Time Status Last Admin Dose Admin (Debrox ear drops) 5 drp NOW LEFT EAR 02/24/25 08:50 02/24/25 09:24 DC 02/24/25 09:05 5 DRP Vital Signs 02/24/25 02/24/25 02/24/25 06:49 07:53 09:21 Pulse 98 78 85 Resp 18 15 14 B/P (MAP) 161/124 115/81 (92) 142/86 Pulse Ox 99 98 98 O2 Flow Rate 0 Medical Decision Making General Diff Dx:Considerations: Include: Abrasion, Contusion, Fracture, H ematoma, Laceration, Malunion, Neurovascular injury, Open fracture, Sprain, Ulcer Departure Time of Disposition: 09:50 Disposition: 01 HOME / SELF CARE / HOMELESS Impression: Primary Impression: Lower extremity sprain Additional Impression: Impacted cerumen of left ear Discharge Instructions: Ear Drops, Adult, Muscle Strain, [id number] Referrals: NO PRIMARY CARE PROVIDER (PCP) Education Educated: Patient Educated regarding: diagnosis, treatment, prognosis, need for follow up Signature Scribe Signature: no scribe Attestation: The note accurately reflects work and decisions made by me.Stephen Patel NP 02/24/25 09:49 STEPHEN RODRIGUEZ NP Feb 24, 2025 09:47
== END 2025-02-24 09:21 | disposition home or self-care (01) ==
LOC: ER 06:39
DX: S83.91XA Sprain of unspecified site of right knee, initial encounter (principal); H61.22 Impacted cerumen, left ear; F31.9 Bipolar disorder, unspecified; F20.9 Schizophrenia, unspecified; F12.90 Cannabis use, unspecified, uncomplicated; F15.90 Other stimulant use, unspecified, uncomplicated; X58.XXXA Exposure to other specified factors, initial encounter; Y93.89 Activity, other specified; Y92.89 Other specified places as the place of occurrence of the external cause; Y99.8 Other external cause status
CPT/HCPCS: 29505; 99283

== ENCOUNTER 2025-02-24 18:43 | Emergency (ER) | payer MEDICAID ==
[2025-02-24 18:59] VITALS: BP 146/82; PULSE 113; RESP 18; TEMP 98; O2SAT 98
--- NOTE | 2025-02-24 20:12 | RADIOLOGY REPORT ---
EXAM: DI ABDOMEN/CHEST,DET FORBDY HISTORY: possible foreign body COMPARISON: None TECHNIQUE: Supine and upright views of the abdomen and frontal view of the chest were performed. FINDINGS: CHEST: No pneumothorax, pulmonary edema, or consolidative infiltrates. The heart is not enlarged. ABDOMEN: Non obstructive bowel gas pattern. Surgical clips noted within the right upper quadrant of the abdomen. No radiopaque foreign body. The bones are unremarkable.. IMPRESSION: 1. No acute intrathoracic process. 2. No radiopaque foreign body 3. No acute intra-abdominal findings
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
== END 2025-02-24 21:28 | disposition home or self-care (01) ==
LOC: ER 18:44
DX: R10.9 Unspecified abdominal pain (principal); F19.10 Other psychoactive substance abuse, uncomplicated; F20.9 Schizophrenia, unspecified; F15.90 Other stimulant use, unspecified, uncomplicated; F12.90 Cannabis use, unspecified, uncomplicated
CPT/HCPCS: 76010; 99283

== ENCOUNTER 2025-03-29 08:11 | Emergency (ER) | payer MEDICAID ==
[~2025-03-29] VITALS: Ht 162.6 cm; Wt 180.5 kg
[2025-03-29 08:12] VITALS: BP 125/76; PULSE 100; RESP 18; O2SAT 99
--- NOTE | 2025-03-29 08:48 | RADIOLOGY REPORT ---
CLINICAL INDICATION: RT.HAND PAIN TECHNIQUE: 3 radiographic views of the right hand were obtained. Comparison: None FINDINGS/IMPRESSION: There is no evidence of acute fracture or dislocation. The visualized joint space is well maintained. The alignment is anatomical. There is no radiopaque foreign body.
[2025-03-29 09:02] VITALS: TEMP 98.5
== END 2025-03-29 09:03 | disposition left against medical advice (07) ==
LOC: ER 08:11
DX: M79.641 Pain in right hand (principal); Z53.21 Procedure and treatment not carried out due to patient leaving prior to being seen by health care provider
CPT/HCPCS: 73130

== ENCOUNTER 2025-05-18 20:28 | Emergency (ER) | payer MEDICAID ==
[~2025-05-18] VITALS: Ht 167.6 cm; Wt 83.0 kg
[2025-05-18 21:27] LABS: MEAN PLATELET VOLUME 8.4 FL (7.4-10.4); RED CELL DISTRIBUTION WIDTH 16.9 % (11.5-14.5)
[2025-05-18 21:41] LABS: LEUKOCYTE ESTERASE ,URINE NEGATIVE (Neg); NITRITES, URINE NEGATIVE (Neg); OCCULT BLOOD,URINE LARGE (Neg)
[2025-05-18 21:42] LABS: UA COLLECTION TYPE VOIDED
[2025-05-18 21:42] LABS: CREATININE 0.86 MG/DL (0.40-0.90); TOTAL CARBON DIOXIDE 26.0 MMOL/L (24-32); eCRCL 91 ML/MIN; eGFR 79 ML/MIN
[2025-05-18 21:55] LABS: ETHANOL < 10 MG/DL (<10)
[2025-05-18 21:55] LABS: URINE AMPHETAMINE SCREEN POSITIVE (Neg); URINE BARBITUATE SCREEN NEGATIVE (Neg); URINE BENZODIAZEPINES SCREEN NEGATIVE (Neg); URINE CANNABINOID SCREEN NEGATIVE (Neg); URINE COCAINE SCREEN POSITIVE (Neg); URINE METHADONE SCREEN NEGATIVE (Neg); URINE OPIATE SCREEN NEGATIVE (Neg); URINE PHENCYCLIDINE SCREEN NEGATIVE (Neg)
[2025-05-18 22:04] LABS: SQUAMOUS EPITHELIAL CELL,UR FEW /LPF (FEW)
--- NOTE | 2025-05-18 22:32 | Physician Documentation ---
History of Present Illness ~ Chief Complaint: Mental Health Eval Stated Complaint: 51/50 Time Seen by MD: 22:27 Primary Medical Doctor: Mariana Friedman Mode of Arrival: EMS, Stretcher HPI Patient presents to the emergency room from [facility] on a written 5150. Patient acting erratically and it was determined she was unable to care for herself Medication Reconciliation Allergies: Coded Allergies: No Known Allergies (Unverified , 05/18/25) Scheduled Olanzapine (Olanzapine), 1 TAB PO DAILY, (Reported) Olanzapine (Olanzapine), 1 TAB PO HS, (Reported) Past Medical History Past Medical History: Bipolar, Depression, Schizophrenia Past Surgical History: abdominal surgery Other Past Surgical History: past colostomy Patient History: Patient reports no known family medical history. Other Past Family History: NONCONTRIBUTORY Alcohol Use: Heavy Drug Use: marijuana, methamphetamine Lives with: Alone Lives In: Homeless Occupation: unemployed Review of Systems ROS Patient is uncooperative with review of systems Physical Exam Vital Signs: Temperature: 97.4, Source: Temporal, Heart Rate: 100, Respiratory Rate: 16, BP: 107/59, Pulse Oximetry: 97, Weight: 83.000 Oxygen Flow Rate: 0 Physical Exam General: Patient is awake, alert, redirectable. Talking to herself Head: Normocephalic and atraumatic. Eyes: Conjunctival normal. EOMI. PERRL. ENT: Mucous membranes moist. Neck: Supple, trachea is midline. Chest: Clear to auscultation bilaterally without rales, rhonchi, or wheezes. There is no accessory muscle use or retractions. Cardiac: RRR without murmurs, gallops, or rubs. Psych: Good eye contact, tangential, psychotic Progress Results/Orders Results/Orders Orders - PAMELA PEGUERO MD Covid19 Binax Poc Result Entry (05/18/25 20:52) Completed Orders - PAMELA PEGUERO MD TSH (05/18/25 20:52) Cbc/Diff (05/18/25 20:52) CMP (05/18/25 20:52) Drug Screen, Urine (05/18/25 20:52) Ethanol (05/18/25 20:52) Ua With Microscopic (05/18/25 20:57) Vital Signs 05/18/25 05/18/25 20:35 20:41 Temp 97.4 Pulse 100 Resp 16 16 B/P (MAP) 107/59 Pulse Ox 97 O2 Flow Rate 0 Laboratory Tests Test 05/18/25 20:57 05/18/25 20:58 05/18/25 21:07 Urine Specimen Description Voided Urine Color Yellow Urine Clarity Clear Urine pH 6.0 Urine Specific [place] >=1.030 Urine Protein Trace Urine Glucose (UA) Negative Urine Ketones Negative Urine Occult Blood Large H Urine Nitrite Negative Urine Bilirubin Small Urine Urobilinogen 1.0 Urine Leukocyte Esterase Negative Urine RBC 3-10 Urine WBC 0-4 Urine Squamous Epithelial Cells Few Urine Bacteria 2+ Volume Urine Centrifuged 10 ml Urine Comment Urine Opiates Screen Negative Urine Methadone Screen Negative Urine Fentanyl Screen Negative Urine Barbiturates Screen Negative Urine Phencyclidine Screen Negative Urine Amphetamines Screen Positive Urine Benzodiazepines Screen Negative Urine Cocaine Screen Positive Urine Cannabinoids Screen Negative Drug Screen Comment SARS-CoV-2 Antigen (Rapid) Negative White Blood Count 7.5 Red Blood Count 3.75 L Hemoglobin 10.3 L Hematocrit 30.8 L Mean Corpuscular Volume 82.1 Mean Corpuscular Hemoglobin 27.4 Mean Corpuscular Hemoglobin Concent 33.4 Red Cell Distribution Width 16.9 H Platelet Count 240 Mean Platelet Volume 8.4 Neutrophils (%) (Auto) 66.2 Lymphocytes (%) (Auto) 23.4 Monocytes (%) (Auto) 8.3 Eosinophils (%) (Auto) 1.5 Basophils (%) (Auto) 0.6 Neutrophils # (Auto) 5.0 Lymphocytes # (Auto) 1.8 Monocytes # (Auto) 0.6 Eosinophils # (Auto) 0.1 Basophils # (Auto) 0.0 CBC Comment Sodium Level 140 Potassium Level 3.1 L Chloride Level 107 Carbon Dioxide Level 26.0 Anion Gap 7 L Blood Urea Nitrogen 16 Creatinine 0.86 Estimated GFR/1.73 m2 79 BUN/Creatinine Ratio 18.6 Glucose Level 90 Calcium Level 8.2 L Total Bilirubin 0.6 Aspartate Amino Transf (AST/SGOT) 23 Alanine Aminotransferase (ALT/SGPT) 28 Alkaline Phosphatase 96 Total Protein 6.7 Albumin 3.4 Globulin 3.3 Albumin/Globulin Ratio 1.0 L Thyroid Stimulating Hormone (TSH) 2.20 Chemistry Comments Ethyl Alcohol Level < 10 Medical Decision Making Findings Patient presents to the emergency room for evaluation of psychosis written on a 5150. Labs reviewed and that has no evidence of major pathologic derangements. Low potassium which has been supplemented. Patient is medically cleared for mental health evaluation Departure Disposition: 30 STILL A PATIENT Impression: Primary Impression: Hypokalemia Additional Impression: Psychosis Condition: Guarded Referrals: NO PRIMARY CARE PROVIDER (PCP) Signature Scribe Signature: No scribe Attestation: The note accurately reflects work and decisions made by me.Pamela Peguero MD 05/18/25 22:32 PAMELA PEGUERO MD May 18, 2025 22:32
[2025-05-18] MEDS: potassium Cl 20 mEq SR tablet PO STA (22:35)
[2025-05-19] MEDS ORDERED: NO HOME MEDS (05:30)
[2025-05-19 10:17] VITALS: BP 106/71; PULSE 95; TEMP 98.4; O2SAT 97
[2025-05-19] MEDS ORDERED: diazepam inj 5 MG/ML inj. IM PRN (13:25)
[2025-05-19 18:02] VITALS: RESP 16
== END 2025-05-19 18:09 ==
LOC: ER 20:28
DX: E87.6 Hypokalemia (principal); F12.90 Cannabis use, unspecified, uncomplicated; F20.9 Schizophrenia, unspecified; F31.9 Bipolar disorder, unspecified; Z56.0 Unemployment, unspecified; Z59.00 Homelessness unspecified; Z60.2 Problems related to living alone; Z93.3 Colostomy status; Z79.899 Other long term (current) drug therapy; Z20.822 Contact with and (suspected) exposure to COVID-19
CPT/HCPCS: 36415; 80053; 80305; 80320; 81001; 84443; 85025; 87811; 99285; Q0163